=== PATIENT | male | born 1960 | race Caucasian/White ===

== ENCOUNTER 2020-07-11 09:24 | Outpatient (REF) | payer OTHER, SELFPAY ==
[2020-07-11 13:54] LABS: Basophils Percent Auto 0.6 % (0-2); Eosinophils Absolute Auto 0.1 X10*3/uL (0.0-0.4); Eosinophils Percent Auto 2.1 % (0-4); Hematocrit 41.4 % (42-52); Hemoglobin 14.2 g/dl (14.0-18.0); Imm Gran Abs Auto 0.01 X10*3/uL (0.00-0.03); Imm Gran Pct Auto 0.2 % (0.0-0.4); Lymphocytes Absolute Auto 0.6 X10*3/uL (1.2-4.9); Lymphocytes Percent Auto 11.9 % (20-40); MANUAL DIFF FLAG SCAN; Mean Corpuscular HGB Conc 34.3 g/dl (31.0-36.0); Mean Corpuscular Hemoglobin 32.3 pg (27.0-33.0); Mean Corpuscular Volume 94.3 fL (80-98); Mean Platelet Volume 10.4 fL (9.4-12.4); Monocytes Absolute Auto 0.6 X10*3/uL (0.1-1.2); Monocytes Percent Auto 11.9 % (2-11); Neutrophils Absolute Auto 3.5 X10*3/uL (2.0-8.3); Neutrophils Percent Auto 73.3 % (45-73); Platelet Count 201 X10*3/uL (160-400); Red Blood Count 4.39 X10*6/uL (4.60-5.80); Red Cell Distribution Width 11.8 % (11.0-16.0); SCAN SMEAR FLAG 1; White Blood Count 4.7 X10*3/uL (4.8-10.8)
[2020-07-11 14:26] LABS: SLIDE REVIEW VERIFIED
[2020-07-11 14:40] LABS: Alanine Aminotransferase 16 U/L (0-40); Albumin Level 4.3 g/dL (3.5-5.0); Alkaline Phosphatase 75 U/L (39-117); Anion Gap 12 (12-20); Aspartate Amino Transferase 19 U/L (5-37); Bilirubin Total 0.7 mg/dL (0.0-1.0); Blood Urea Nitrogen 25 mg/dL (9-16); Calcium 9.4 mg/dL (8.4-10.2); Carbon Dioxide 27 mmol/L (22-29); Chloride 103 mmol/L (96-108); Cholesterol 187 mg/dL; Estimated Glomerular Filt Rate > 60; Glucose Random 100 mg/dL (60-115); Potassium 4.7 mmol/l (3.3-5.1); Sodium 137 mmol/L (135-145); Total Protein 6.8 g/dL (6.5-8.0)
[2020-07-11 14:50] LABS: Free T4 (Free Thyroxine) 1.03 ng/dL (0.71-1.85); Prostate Specific Antigen Scr 0.51 ng/mL (<0.05-4.0); Thyroid Stimulating Hormone 1.95 mIU/mL (0.32-4.0)
== END 2020-07-11 09:25 | disposition home or self-care (01) ==
LOC: HO.10HDL 09:24
PROVIDERS: Visit Provider Internal Medicine
DX: Z12.5 Encounter for screening for malignant neoplasm of prostate (principal); N40.0 Benign prostatic hyperplasia without lower urinary tract symptoms; R63.4 Abnormal weight loss; Z98.890 Other specified postprocedural states
CPT/HCPCS: 36415; 80053; 82465; 84153; 84439; 84443; 85025

== ENCOUNTER → 2020-07-12 08:18 | Outpatient (REF) | payer OTHER, SELFPAY ==
--- NOTE | 2020-07-12 08:30 | CA_ITS ---
Transthoracic Echocardiogram Patient (Last, First, Middle): Adrian Mitchell M Gender: Male Date of : 1960 Age: 60 Procedure Date: 07/12/2020 Procedure Type: Transthoracic Echocardiogram Location: OP Height: 187.96 cm Weight: 81.65 kg BSA: 2.08 m2 Heart Rate: bpm BP: 140 / 100 mmHg Employee Health Nurse: CR Referring MD: José Oneil MD Symptoms: R00.2 Palpitations Study Quality: Good ECG Rhythm: Sinus Conclusions: - The left ventricular systolic function is normal. The visually estimated ejection fraction is between 55-60%. - There is mild mitral valve regurgitation. Findings Left Ventricle Normal left ventricular cavity size. There is mildly increased left ventricular wall thickness. The left ventricular systolic function is normal. The visually estimated ejection fraction is between 55-60%. There is no evidence of regional wall motion abnormalities. E/E prime ratio is <8, consistent with normal filling pressures. Evidence suggests grade I (mild) diastolic dysfunction. Right Ventricle Normal right ventricular cavity size and systolic function. Atria The left atrium is normal in size. The right atrium is normal in size. Aortic Valve There is a normal trileaflet aortic valve. There is no aortic valve stenosis. There is no aortic valve regurgitation. Mitral Valve The mitral valve appears normal. There is mild mitral valve regurgitation. There is no mitral valve stenosis. Pulmonic Valve The pulmonic valve was not well visualized. Tricuspid Valve Normal tricuspid valve structure. There is mild tricuspid valve regurgitation. The pulmonary artery systolic pressure is normal. Great Vessels The aortic annulus, sinuses of valsalva, and asc aorta are normal in size. Venous The inferior vena cava is normal in size and collapses greater than 50% with inspiration. Pericardium/Pleural There is no evidence of pericardial effusion. Prior Study Comparison No prior study available for comparison. Measurements M-Mode Liner Measurements Normals - Women/Men IVSd: 1.22 0.6-0.9/0.6-1.0 cm LVIDd: 5.74 3.9-5.3/4.2-5.9 cm LVIDd Index: 2.76 1.9-3.2 cm/m2 LVIDs: 4.30 2.0-3.8 cm LVPWd: 1.30 0.6-0.9/0.6-1.0 cm LV Mass: 389.42 67-162/88-224g LV Mass Index: 187.22 43-95/49-115 g/m2 M-Mode Volumes LV EDV: 163.00 LV ESV: 83.10 2D Linear Measurements IVSd: 1.14 0.6-0.9/0.6-1.0 cm LVIDd: 4.89 3.9-5.3/4.2-5.9 cm LVIDd Index: 2.35 2.4-3.2/2.2-3.1 cm/m2 LVIDs: 3.50 2.0-3.6 cm LVPWd: 1.33 0.7-1.1 cm Ao Root: 3.20 2.1-3.5 cm LA Diam: 3.70 2.7-3.8/3.0-4.0 cm LAIDs Index: 1.78 1.5-2.3 cm/m2 LV Mass: 293.03 67-162/88-224 g LV Mass Index: 140.88 43-95/49-115 g/m2 LVOT Diam: 2.50 3.0+(-)1.3 cm 2D Systolic Function EF 4C: 48.70 >55% EF 2C: 42.80 >55% M-Mode Systolic Function FS: 25.10 27-47/25-43% Mitral Valve MV Pk E: 0.50 MV PK A: 0.76 MV Decel Time: 114.00 E/A: 0.70 E'Lateral: 8.12 E'Medial: 5.51 E/E' Med: 9.10 E/E' Lat: 6.20 PHT: 33.00 MVA PHT: 6.67 Decel [place]: 4.44 Aortic Valve AoV Pk Martir: 0.96 AoV Pk Grad: 4.00 LVOT LVOT Pk Martir: 0.95 LVOT Mn Martir: 0.60 LVOT VTI: 0.19 LVOT Pk Grad: 4.00 LVOT Mn Grad: 2.00 LVOT Diam: 2.50 LVOT Area: 4.91 Diastolic Function MV Pk E: 0.50 MV Pk A: 0.76 E/A: 0.70 E'Medial: 5.51 E/E' Med: 9.10 E' Laterial: 8.12 E/E' Lat: 6.20 Tricuspid Valve TR Pk Martir: 2.32 TR Pk Grad: 22.00 RA Press: 3.00 RVSP: 25.00 Great Vessels Aorta Ao Root-2D: 3.20 2.0-3.7 cm Ao Asc: 3.40 2.1-3.4 cm Updated in Other Vendor System with Status of Final August Machado MD electronically signed on 07/12/2020 4:21:43 PM with status of Final
== END ==
LOC: HO.CARD 08:18
PROVIDERS: PCP Internal Medicine; Visit Provider Internal Medicine
DX: R00.2 Palpitations (principal)
CPT/HCPCS: 93306

== ENCOUNTER → 2020-08-17 09:31 | Outpatient (REF) | payer OTHER, SELFPAY ==
--- NOTE | 2020-08-17 10:00 | ECG_ITS ---
Hook-up date: 2020-08-17 09:44:00 Duration: 47:59:00 Test Indications: PALPITATIONS Medications: 890052 QRS complexes 3731 Ventricular ectopics which represent 3 % of total QRS comp. 238 Supraventricular ectopics which represent <1 % of total QRS comp. * Paced QRS complexs which represent % of total QRS comp. VENTRICULAR ECTOPY 3072 Isolated 108 Bigeminal Cycles 260 Couplets 40 Runs 139 Beats in Runs 8 Beats LONGEST at 79 BPM at 10:46:11 2020-08-17 3 Beats FASTEST at 156 BPM at 11:47:29 2020-08-17 SUPRAVENTRICULAR ECTOPY 216 Isolated 11 Couplets 0 Runs 0 Beats in Runs * Beats LONGEST at * BPM at :: -- * Beats FASTEST at * BPM at :: -- HEART RATES 47 MIN at 04:50:49 2020-08-18 76 AVG 113 MAX at 09:26:10 2020-08-18 LONGEST RR 0.7200 secs at 05:18:05 2020-08-18 S-T LEVELS Channel 1 - 128 mm at 09:44:00 2020-08-17 - 128 mm at 09:44:00 2020-08-17 Channel 2 - 128 mm at 09:44:00 2020-08-17 - 128 mm at 09:44:00 2020-08-17 Channel 3 - 128 mm at 02:90:31 -- - 128 mm at 02:90:31 HOLTER MONITOR COMPLETED TO EVAL PALP.NO DIARY ENTRIES OF SYMPTOMS.48 HR TEST COMPLETED. MAX HR 113; MIN HR 47. OCC PAC'S NOTED. FREQUENT PVC'S WITH OCC BIGEMINY, SOME COUPLETS, SEVERAL CONSECUTIVE RUNS OF 3-5 BEATS. PT WILL BE REFERRED FOR CARDIOLOGY EVAL. Referred By: José August Overread By: BLANCA AUGUST MD
== END ==
LOC: HO.CARD 09:31
PROVIDERS: PCP Internal Medicine; Visit Provider Internal Medicine
DX: R00.2 Palpitations (principal)
CPT/HCPCS: 93225; 93226

== ENCOUNTER → 2020-09-18 10:42 | Outpatient (BNVA) | payer OTHER, SELFPAY | PROVIDERS: PCP Internal Medicine; Visit Provider Internal Medicine | DX: R00.2 Palpitations (principal); I49.3 Ventricular premature depolarization; I34.0 Nonrheumatic mitral (valve) insufficiency | CPT/HCPCS: 93005 ==

== ENCOUNTER → 2020-09-25 10:39 | Outpatient (REF) | payer OTHER, SELFPAY ==
--- NOTE | 2020-09-25 10:42 | CA_ITS ---
Acquisition Time: 2020-09-25 10:57:18 Total Exercise Time: 00:05:26 Test Indications: Abnormal ECG Medications: KEYTRUDA Protocol: KACEY Max HR: 179 BPM 111% of Pred: 161 BPM Max BP: 202/090 mmHG Max Work Load: 7.0 METS Exersice stress ECHO using Kacey protocol. Test ended at 5 min 26 sec, as pt's went into VT and became SOB. METS 7.0. ECHO images taken at rest and at peak exercise. Very difficult to see changes to ST segments as pt having multiple SVT's as well as going to VT at peak exercise. Hypertensive response to BP normalyzed in 10 minutes into recovery, last BP taken was 138/78 Rhythm returned to baseline at 100/min with more frequent PVC's Pt will be seen by Dr. Machado at 12:30 Referred By: August Machado Overread By: Hill Lanza
== END ==
LOC: HO.CARD 10:39
PROVIDERS: Visit Provider Internal Medicine
DX: R00.2 Palpitations (principal)
CPT/HCPCS: 93350; Q9957

== ENCOUNTER → 2020-12-03 08:44 | Outpatient (REF) | payer OTHER, SELFPAY ==
--- NOTE | 2020-12-03 11:05 | ECG_ITS ---
Hook-up date: 2020-12-03 10:16:00 Duration: 26:49:00 Test Indications: VENTRICULAR DEPOLARIZATION Medications: 15467 QRS complexes 5085 Ventricular ectopics which represent 5 % of total QRS comp. 29 Supraventricular ectopics which represent <1 % of total QRS comp. * Paced QRS complexs which represent % of total QRS comp. VENTRICULAR ECTOPY 4599 Isolated 230 Bigeminal Cycles 218 Couplets 16 Runs 50 Beats in Runs 4 Beats LONGEST at 199 BPM at 16:35:35 2020-12-03 4 Beats FASTEST at 199 BPM at 16:35:35 2020-12-03 SUPRAVENTRICULAR ECTOPY 29 Isolated 0 Couplets 0 Runs 0 Beats in Runs * Beats LONGEST at * BPM at :: -- * Beats FASTEST at * BPM at :: -- HEART RATES 55 MIN at 04:00:05 2020-12-04 81 AVG 126 MAX at 10:46:15 2020-12-03 LONGEST RR 1.6800 secs at 19:58:50 2020-12-03 S-T LEVELS Channel 1 - 128 mm at 10:16:00 2020-12-03 - 128 mm at 10:16:00 2020-12-03 Channel 2 - 128 mm at 10:16:00 2020-12-03 - 128 mm at 10:16:00 2020-12-03 Channel 3 - 128 mm at 02:93:51 -- - 128 mm at 02:93:51 Underlying rhythm is sinus; Average ventricular rate 81/min; range 55-126/min; Frequent PVCs; variable morphology; mostly isolated; some couplets; bigeminy; about 16 runs noted; longest 4 beats at 199/min; No sustained arrhythmias; No events in patient diary. Referred By: Horacio Bravo Overread By: HORACIO BRAVO
== END ==
LOC: HO.CARD 08:44
PROVIDERS: PCP Internal Medicine; Visit Provider Internal Medicine
DX: I49.3 Ventricular premature depolarization (principal)
CPT/HCPCS: 93226

== ENCOUNTER → 2021-01-03 14:51 | Outpatient (BNVA) | payer OTHER, SELFPAY | PROVIDERS: PCP Internal Medicine; Visit Provider Internal Medicine ==

== ENCOUNTER 2022-05-16 18:42 | Emergency (ER) | payer OTHER, SELFPAY ==
--- NOTE | 2022-05-16 | ECG_ITS ---
Test Reason : DIFFICULTY BREATHING Blood Pressure : / mmHG Vent. Rate : 116 BPM Atrial Rate : 116 BPM P-R Int : 134 ms QRS Dur : 096 ms QT Int : 342 ms P-R-T Axes : 062 044 083 degrees QTc Int : 475 ms Sinus tachycardia with occasional Premature ventricular complexes RSR' or QR pattern in V1 suggests right ventricular conduction delay Nonspecific ST and T wave abnormality Abnormal ECG No previous ECGs available Referred By: Generic ED Physician Electronically Signed By:ANIL JEROME
--- NOTE | ~2022-05-16 | CT_ITS ---
EXAMINATION: CT CHEST WITHOUT CONTRAST CLINICAL INFORMATION: Dyspnea COMPARISON: 05/16/2022 TECHNIQUE: Multidetector volumetric CT imaging of the chest was done. Axial MIP volume rendering provided. Sagittal and coronal reformatted images were obtained. This CT examination was performed using dose optimization techniques as appropriate, variously including the following: *Automated exposure control *Adjustment of mA and/or kV according to patient size (this includes techniques or standardized protocols for targeted exams where dose is matched to indication/reason for exam; i.e. extremities or head) *Use of iterative reconstruction technique DLP: 226 mGy-cm FINDINGS: RETAIL ASSISTANT STORE MANAGER: Bilateral lung opacities noted. LUNGS: The central airways are patent. Multifocal nodular and masslike areas of consolidation are seen throughout both lungs. For instance, there is a right upper lobe perihilar mass measuring 3.5 cm. Posterior right lower lobe 4.2 cm mass at the mid lung. Superior segment left lower lobe 2.7 cm nodule noted. More inferiorly the areas of consolidation are more confluent, particularly in the right lower lobe. No pneumothorax MEDIASTINUM: Evaluation is limited without IV contrast. Prominent heart. No pericardial effusion. Right paratracheal lymph node measures 1 cm short axis, series 4 image 20. There is soft tissue nodularity in the right epicardial fat measuring 3.3 x 1.6 cm on series 4 image 48. A nodule is seen along the distal aspect of the esophagus measuring 1.1 cm on series 4 image 47. PLEURA: No pleural effusion. AXILLA: No lymphadenopathy. A right chest wall port is in place. UPPER ABDOMEN: Bilateral ill-defined adrenal gland thickening/nodularity. OSSEOUS STRUCTURES: Mild anterior wedging at the T11 vertebral body. No focal osseous lesion identified. Mild degenerative changes in the spine. CT/CT chest wo con IMPRESSION: Multifocal nodular and masslike areas of consolidation in both lungs. This appearance is nonspecific, but metastatic disease is the primary concern. The presence of the right chest wall port raises suspicion of known cancer. Alternatively, atypical infection is a consideration. Prominent mediastinal lymph nodes, concerning for metastatic disease. Abnormal adrenal gland thickening, also worrisome for metastatic disease. Fleischner guidelines were followed.
--- NOTE | ~2022-05-16 | XR_ITS ---
EXAMINATION: XR CHEST CLINICAL INFORMATION: Dyspnea. COMPARISON: None TECHNIQUE: Frontal view of the chest was obtained. FINDINGS: Opacities are seen in the right mid lung perihilar region and lung bases. The heart and mediastinal structures are unremarkable. A right-sided central venous port. The tip terminating in the right atrium. The heart and mediastinal structures are unremarkable. XR/XR chest 1V IMPRESSION: Bilateral patchy infiltrates most pronounced in the right perihilar region are nonspecific. This could represent an infectious/inflammatory process however, pulmonary nodule/malignancy cannot be excluded. Short-term radiographic follow-up after treatment is recommended to assess for resolution. If these findings do not resolve, a chest CT scan is recommended.
[2022-05-16 18:57] VITALS: BP 149/94; PULSE 119; RESP 20; TEMP 37.5; O2SAT 96; BMI 19.6
[2022-05-16 19:02] VITALS: BP 120/65; PULSE 114; O2SAT 98
--- NOTE | 2022-05-16 19:15 | ED_ITS ---
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 He is frail and cachectic. He has been having issues clearing mucous and having coughing fits x 6 months. Tonight he thinks he mucous plugged and EMS found him 83% on RA - responded to neb treatment and s iraida he wishes he had one at home. MD elicited complaint: shortness of breath and cough Pertinent past history: other (difficulty clearing secretoins post radiation) Onset (ago): month(s) (6) Context: choking/aspiration Timing: intermittent Severity: severe Exacerbating factors: coughing Relieving factors: bronchodilators (had great relief with neb) Known history of: PE, DVT and other (lung cancer) Associated symptoms: cough, sputum production and other (chronic stridor) Treatment prior to arrival: oxygen and bronchodilator Related Data Home Medications Medication Instructions Recorded Confirmed carboplatin 10 mg/mL intravenous continuous IV infusion 01/03/21 01/03/21 solution cetuximab 100 mg/50 mL intravenous IV 01/03/21 01/03/21 solution (Erbitux) paclitaxel 6 mg/mL IV 01/03/21 01/03/21 concentrate,intravenous Allergies Allergy/AdvReac Type Severity Reaction Status Date / Time No Known Drug Allergies Allergy Unknown NONE Verified 01/03/21 15:10 [NO KNOWN DRUG ALLERGIES] Review of Systems Review of Systems: Constitutional : No Fever, No Chills ENT/Mouth : No sore throat, No Rhinorrhea, No Swallowing Difficulty Eyes: No Eye Pain, No Swelling, No Redness Cardiovascular : No Chest Pain, positive SOB, No Orthopnea, no Edema Respiratory : pos Cough, pos Sputum, No Wheezing, positive dyspnea Gastrointestinal : No Nausea, No Vomiting, No Diarrhea, No abdominal Pain, No Hematochezia, No Melena Genitourinary : No Dysuria, No Urinary Frequency, No Hematuria Musculoskeletal : No joint pain, No Myalgias Skin : No Skin Lesions, No rash Neuro : No Weakness, No Numbness, No Dizziness, No Headache Psych : No Anxiety/Panic, No Depression Heme/Lymph: No Bruising, No Lymphadenopathy Endocrine : No Polyuria, No Polydipsia All other systems reviewed and are negative [facility] Past Medical History Attestation statement: The following information was validated with the patient. Medical History Primary squamous cell carcinoma of throat Surgical History History of ankle surgery History of biopsy History of inguinal hernia repair History of lung biopsy Family History Family History Father No problems noted. Mother No problems noted. Social History Social History (Updated 05/16/22 @ 19:32 by Alyson Wheat DO) Patient Tobacco Use Status: Never used Tobacco Advance Directives: No Advance Directives Information Provided: No Advance Directives Date on File: 07/11/20 Physical Exam Vital Signs: Vital Signs: Last Vital Signs Temp 99.5 F 05/16/22 18:57 Pulse 115 H 05/16/22 22:00 Resp 25 H 05/16/22 22:00 BP 133/82 05/16/22 22:00 Pulse Ox 94 05/16/22 22:00 O2 Del Method 05/16/22 22:00 O2 Flow Rate 4 05/16/22 22:00 Oxygen Flow Rate 4 05/16/22 18:57 BMI result Body Mass Index 19.6 Appearance: Alert. Oriented X3. No acute distress. Frail cachectic Eyes: Pupils equal, round and reactive to light. ENT: Pharynx normal. Neck: Normal inspection. Neck supple. CVS: Normal heart rate and rhythm. Pulses normal. Respiratory: No respiratory distress. Breath sounds slightly coarse Abdomen: Soft and nontender. Skin: Skin warm and dry. pale skin color. Normal skin turgor. Extremities: No lower extremity edema. No calf ttp Neuro: Oriented X 3. No motor deficit. No sensory deficit. 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 He now has lung cancer and mets - he had a choking spell from mucous at home and plugged that resolved with neb. At this time will repeat neb, obtain basic labs and imag ing. He denies infectious symptoms or chest pain already on DOAC doubt ACS/PE. He reports cough x 6 months. He is seeing a surgeon to discuss options to better help him clear his secretions vs permanent trach. Dispo per results and response to duoneb Lab Data Result diagrams: 05/16/22 20:24 05/16/22 20:24 Labs: Lab Results 05/16/22 05/16/22 05/16/22 Range/Units 20:24 20:24 20:24 WBC 12.6 H (4.8-10.8) X10*3/uL RBC 4.35 L (4.60-5.80) X10*6/uL Hgb 12.9 L (14.0-18.0) g/dl Hct 38.2 L (42.0-52.0) % MCV 87.8 (80.0-98.0) fL MCH 29.7 (27.0-33.0) pg MCHC 33.8 (31.0-36.0) g/dl RDW 14.3 (11.0-16.0) % Plt Count 295 (160-400) X10*3/uL MPV 9.4 (9.4-12.4) fL Immature Gran % (Auto) 0.2 (0.0-0.4) % Neut % (Auto) 95.2 H (45-73) % Lymph % (Auto) 2.3 L (20-40) % [place] % (Auto) 1.8 L (2-11) % Eos % (Auto) 0.2 (0-4) % Baso % (Auto) 0.3 (0-2) % Lymph # (Auto) 0.3 L (1.2-4.9) X10*3/uL [place] # (Auto) 0.2 (0.1-1.2) X10*3/uL Eos # (Auto) 0.0 (0.0-0.4) X10*3/uL Baso # (Auto) 0.0 (0.0-0.2) X10*3/uL Abs Immat Gran (auto) 0.03 (0.00-0.03) X10*3/uL Absolute Neuts (auto) 12.0 H (2.0-8.3) x10*3/uL Absolute Nucleated RBC 0.000 (0.0-0.012) X10*3/uL Nucleated RBC % (auto) 0.0 (0.0-0.2) /100WBC Smear Tech's Comments VERIFIED PT (10.0-13.1) SEC INR (0.9-1.1) Sodium 137 (135-145) mmol/L Potassium 4.1 (3.3-5.1) mmol/L Chloride 94 L (96-108) mmol/L Carbon Dioxide 29 (22-29) mmol/L Anion Gap 18 (12-20) BUN 28 H (9-16) mg/dL Creatinine 0.95 (0.5-1.4) mg/dL Estim Creat Clear Calc 75.9 Estimated GFR > 60 Random Glucose 176 H D (60-115) mg/dL Lactic Acid 2.7 H* (0.5-2.0) mmol/L Lactic Acid F/U @ 2Hr (0.5-2.0) mmol/L Calcium 9.3 (8.4-10.2) mg/dL Magnesium 1.7 (1.6-2.6) mg/dL Total Bilirubin 0.8 (0.0-1.0) mg/dL Direct Bilirubin 0.4 (0.0-0.5) mg/dL AST 26 (5-37) U/L ALT 11 (0-40) U/L Alkaline Phosphatase 111 D (39-117) U/L Troponin I High Sens (<3.5-35.0) ng/L B-Natriuretic Peptide (<100) pg/mL Total Protein 7.6 (6.5-8.0) g/dL Albumin 4.3 (3.5-5.0) g/dL COVID-19 (LATESHA) (Negative) COVID-19 Clin Com 05/16/22 05/16/22 05/16/22 Range/Units 20:24 20:24 20:24 WBC (4.8-10.8) X10*3/uL RBC (4.60-5.80) X10*6/uL Hgb (14.0-18.0) g/dl Hct (42.0-52.0) % MCV (80.0-98.0) fL MCH (27.0-33.0) pg MCHC (31.0-36.0) g/dl RDW (11.0-16.0) % Plt Count (160-400) X10*3/uL MPV (9.4-12.4) fL Immature Gran % (Auto) (0.0-0.4) % Neut % (Auto) (45-73) % Lymph % (Auto) (20-40) % [place] % (Auto) (2-11) % Eos % (Auto) (0-4) % Baso % (Auto) (0-2) % Lymph # (Auto) (1.2-4.9) X10*3/uL [place] # (Auto) (0.1-1.2) X10*3/uL Eos # (Auto) (0.0-0.4) X10*3/uL Baso # (Auto) (0.0-0.2) X10*3/uL Abs Immat Gran (auto) (0.00-0.03) X10*3/uL Absolute Neuts (auto) (2.0-8.3) x10*3/uL Absolute Nucleated RBC (0.0-0.012) X10*3/uL Nucleated RBC % (auto) (0.0-0.2) /100WBC Smear Tech's Comments PT 17.5 H (10.0-13.1) SEC INR 1.5 H (0.9-1.1) Sodium (135-145) mmol/L Potassium (3.3-5.1) mmol/L Chloride (96-108) mmol/L Carbon Dioxide (22-29) mmol/L Anion Gap (12-20) BUN (9-16) mg/dL Creatinine (0.5-1.4) mg/dL Estim Creat Clear Calc Estimated GFR Random Glucose (60-115) mg/dL Lactic Acid (0.5-2.0) mmol/L Lactic Acid F/U @ 2Hr (0.5-2.0) mmol/L Calcium (8.4-10.2) mg/dL Magnesium (1.6-2.6) mg/dL Total Bilirubin (0.0-1.0) mg/dL Direct Bilirubin (0.0-0.5) mg/dL AST (5-37) U/L ALT (0-40) U/L Alkaline Phosphatase (39-117) U/L Troponin I High Sens (<3.5-35.0) ng/L B-Natriuretic Peptide 16 (<100) pg/mL Total Protein (6.5-8.0) g/dL Albumin (3.5-5.0) g/dL COVID-19 (LATESHA) Negative (Negative) COVID-19 Clin Com See Note 05/16/22 05/16/22 Range/Units 20:24 22:56 WBC (4.8-10.8) X10*3/uL RBC (4.60-5.80) X10*6/uL Hgb (14.0-18.0) g/dl Hct (42.0-52.0) % MCV (80.0-98.0) fL MCH (27.0-33.0) pg MCHC (31.0-36.0) g/dl RDW (11.0-16.0) % Plt Count (160-400) X10*3/uL MPV (9.4-12.4) fL Immature Gran % (Auto) (0.0-0.4) % Neut % (Auto) (45-73) % Lymph % (Auto) (20-40) % [place] % (Auto) (2-11) % Eos % (Auto) (0-4) % Baso % (Auto) (0-2) % Lymph # (Auto) (1.2-4.9) X10*3/uL [place] # (Auto) (0.1-1.2) X10*3/uL Eos # (Auto) (0.0-0.4) X10*3/uL Baso # (Auto) (0.0-0.2) X10*3/uL Abs Immat Gran (auto) (0.00-0.03) X10*3/uL Absolute Neuts (auto) (2.0-8.3) x10*3/uL Absolute Nucleated RBC (0.0-0.012) X10*3/uL Nucleated RBC % (auto) (0.0-0.2) /100WBC Smear Tech's Comments PT (10.0-13.1) SEC INR (0.9-1.1) Sodium (135-145) mmol/L Potassium (3.3-5.1) mmol/L Chloride (96-108) mmol/L Carbon Dioxide (22-29) mmol/L Anion Gap (12-20) BUN (9-16) mg/dL Creatinine (0.5-1.4) mg/dL Estim Creat Clear Calc Estimated GFR Random Glucose (60-115) mg/dL Lactic Acid (0.5-2.0) mmol/L Lactic Acid F/U @ 2Hr 1.9 (0.5-2.0) mmol/L Calcium (8.4-10.2) mg/dL Magnesium (1.6-2.6) mg/dL Total Bilirubin (0.0-1.0) mg/dL Direct Bilirubin (0.0-0.5) mg/dL AST (5-37) U/L ALT (0-40) U/L Alkaline Phosphatase (39-117) U/L Troponin I High Sens 7.2 (<3.5-35.0) ng/L B-Natriuretic Peptide (<100) pg/mL Total Protein (6.5-8.0) g/dL Albumin (3.5-5.0) g/dL COVID-19 (LATESHA) (Negative) COVID-19 Clin Com ECG Data Attestation: I personally reviewed and interpreted this ECG as follows: ECG interpretation date: 05/16/22 ECG interpretation time: 19:31 Interpretation: Rate: 116 Rhythm: sinus tach with occ PVCs [place]: normal Normal P waves. Normal ELENA. Normal QRS complex. ST T wave : nonspecific no JEAN CARLOS qTC: normal prior studies: changed from 2019 The study has been interpreted contemporaneously by me. . Discharge Plan Discharge Clinical Impression: Chronic cough Patient Disposition: Home, Self-Care Instructions: Chronic Cough (ED) Additional Instructions: return to ED for any worsening symptoms or concerns YOU DRIED UP WELL WITH A DUONEB - YOU RESPONDED BETTER TO IPRATROPIUM WITH THE ALBUTEROL TALK TO DR. AUGUST ABOUT USING THIS AT HOME WITH NEB MACHINE CT/CT chest wo con IMPRESSION: Multifocal nodular and masslike areas of consolidation in both lungs. This appearance is nonspecific, but metastatic disease is the primary concern. The presence of the right chest wall port raises suspicion of known cancer. Alternatively, atypical infection is a consideration. ? Prominent mediastinal lymph nodes, concerning for metastatic disease. ? Abnormal adrenal gland thickening, also worrisome for metastatic disease. ? Fleischner guidelines were followed. Prescriptions: No Action carboplatin 10 mg/mL solution continuous IV infusion Erbitux 100 mg/50 mL solution IV paclitaxel 6 mg/mL concentrate IV Referrals: José August MD [Primary Care Provider] - 05/19/22 (you would benefit from a neb machine with duo nebs) Interventions: ED Discharge Assessment Last Done: 05/17/22 00:10 Discharge Date/Time: 05/17/22 00:11
[2022-05-16 19:48] VITALS: PULSE 116; RESP 14; O2SAT 95
[2022-05-16] MEDS: Albuterol/Iprat 2.5/0.5MG 3 ML AMPUL.NEB INHALE (19:48)
[2022-05-16 19:59] VITALS: BP 149/84; PULSE 113; RESP 19; O2SAT 97
--- NOTE | 2022-05-16 20:15 | PC.NURSE ---
pt a&ox3, vss, o2 @ 97% on 4L, pt denies any pain at this time, reports that he is feeling much better. pt wanted to let us know that he took his bedtime dose of thc prior to coming to the ED in case he starts getting tired.
[2022-05-16 20:34] LABS: Basophils Percent Auto 0.3 % (0-2); Eosinophils Percent Auto 0.2 % (0-4); Hematocrit 38.2 % (42.0-52.0); Hemoglobin 12.9 g/dl (14.0-18.0); Imm Gran Abs Auto 0.03 X10*3/uL (0.00-0.03); Imm Gran Pct Auto 0.2 % (0.0-0.4); Lymphocytes Absolute Auto 0.3 X10*3/uL (1.2-4.9); Lymphocytes Percent Auto 2.3 % (20-40); MANUAL DIFF FLAG SCAN; Mean Corpuscular HGB Conc 33.8 g/dl (31.0-36.0); Mean Corpuscular Hemoglobin 29.7 pg (27.0-33.0); Mean Corpuscular Volume 87.8 fL (80.0-98.0); Mean Platelet Volume 9.4 fL (9.4-12.4); Monocytes Absolute Auto 0.2 X10*3/uL (0.1-1.2); Monocytes Percent Auto 1.8 % (2-11); Neutrophils Percent Auto 95.2 % (45-73); Platelet Count 295 X10*3/uL (160-400); Red Blood Count 4.35 X10*6/uL (4.60-5.80); Red Cell Distribution Width 14.3 % (11.0-16.0); SCAN SMEAR FLAG 1; White Blood Count 12.6 X10*3/uL (4.8-10.8)
[2022-05-16 20:38] LABS: INTERNATIONAL NORM RATIO 1.5 (0.9-1.1); Prothrombin Time 17.5 SEC (10.0-13.1)
[2022-05-16 20:50] LABS: COVID-19 Test Negative (Negative)
[2022-05-16 20:52] LABS: Lactic Acid 2.7 mmol/L (0.5-2.0)
[2022-05-16 20:53] LABS: Alanine Aminotransferase 11 U/L (0-40); Albumin Level 4.3 g/dL (3.5-5.0); Alkaline Phosphatase 111 U/L (39-117); Anion Gap 18 (12-20); Aspartate Amino Transferase 26 U/L (5-37); Bilirubin Direct 0.4 mg/dL (0.0-0.5); Bilirubin Total 0.8 mg/dL (0.0-1.0); Blood Urea Nitrogen 28 mg/dL (9-16); Calcium 9.3 mg/dL (8.4-10.2); Carbon Dioxide 29 mmol/L (22-29); Chloride 94 mmol/L (96-108); Creatinine Clr Calc Pharmacy 75.9; Estimated Glomerular Filt Rate > 60; Glucose Random 176 mg/dL (60-115); Magnesium 1.7 mg/dL (1.6-2.6); Potassium 4.1 mmol/L (3.3-5.1); SLIDE REVIEW VERIFIED; Sodium 137 mmol/L (135-145); Total Protein 7.6 g/dL (6.5-8.0)
[2022-05-16 20:59] LABS: B Type Natriuretic Peptide 16 pg/mL (<100); Troponin-I High Sensitivity 7.2 ng/L (<3.5-35.0)
[2022-05-16] MEDS: Lactated Ringers 1,000 ML 999 ML IV (21:58)
[2022-05-16 22:00] VITALS: BP 133/82; PULSE 115; RESP 25; O2SAT 94
--- NOTE | 2022-05-16 22:09 | PC.NURSE ---
pt ambulated w 1 assist to bathroom, unsteady gait, on arrival back at room pt o2 sat 86%, improved w O2 @ 4L via nasal cannula. 20G IV placed left forearm, LR started.
[2022-05-16 22:29] LABS: Reflex Lactate? Lactic Acid Added
[2022-05-16 23:12] LABS: ~Lactic Acid-LAB USE ONLY 1.9 mmol/L (0.5-2.0)
== END 2022-05-17 00:11 | disposition home or self-care (01) ==
PROVIDERS: Emergency Provider Emergency Medicine; PCP Internal Medicine
DX: R05.9 Cough, unspecified (principal); R06.02 Shortness of breath; M54.6 Pain in thoracic spine; M54.2 Cervicalgia; Z20.822 Contact with and (suspected) exposure to COVID-19; Z79.899 Other long term (current) drug therapy
CPT/HCPCS: 36415; 71045; 71250; 80048; 80076; 83605; 83735; 83880; 84484; 85025; 85610; 87040; 87635; 93005; 94640; 96360; 96361; 99284; 99285

== ENCOUNTER 2022-06-04 22:27 | Inpatient (IN) | payer OTHER, SELFPAY ==
--- NOTE | ~2022-06-04 | CT_ITS ---
EXAMINATION: CT ANGIOGRAM OF THE CHEST WITH AND WITHOUT CONTRAST (CT PULMONARY ANGIOGRAM FOR PE) CLINICAL INFORMATION: Reason for Exam syncope COMPARISON: CT chest 05/16/2022 TECHNIQUE: Prior to contrast administration, noncontrast localization images were obtained. Subsequently, multidetector volumetric imaging was performed from the thoracic inlet to below the diaphragms following the administration of 65 mL Omnipaque 350 intravenous contrast. No contrast reaction reported Sagittal, coronal, and MIP oblique sagittal reformatted images were obtained on the CT workstation, uploaded to PACS, and reviewed. This CT examination was performed using dose optimization techniques as appropriate, variously including the following: *Automated exposure control *Adjustment of mA and/or kV according to patient size (this includes techniques or standardized protocols for targeted exams where dose is matched to indication/reason for exam; i.e. extremities or head) *Use of iterative reconstruction technique Total exam dose-length product 273 mGy-cm FINDINGS: QUALITY OF STUDY/CONTRAST BOLUS: Satisfactory. PULMONARY ARTERIES: No central or segmental pulmonary emboli. THORACIC AORTA: No aneurysm or dissection. LUNG: The lungs are expanded with multifocal nodular and masslike areas of consolidation. The nodules have increased in size. For example the right upper lobe nodule peripherally based measures 2.8 x 2.9 seen on axial image 25/5 previously same nodule measured 1.9 x 1.9 cm. Left upper lobe nodule measures 2.1 x 1.7 cm axial image 21/5 previously it measured 1.9 x 1.4 cm. The larger nodules have definitely increased in size bilaterally. There are bilateral lower lobe, right middle lobe and lingular reticular nodular changes consistent with interstitial disease. PLEURA: There are small bilateral pleural effusions. MEDIASTINUM: Heart size is normal caliber. There is no pericardial effusion. There is bilateral hilar or mediastinal matted lymphadenopathy. Central trachea and the bronchi are widely patent. No evidence of septal bowing or right heart strain. CHEST WALL/AXILLA: No axillary or internal mammary lymphadenopathy. OSSEOUS STRUCTURES: No acute or suspicious osseous abnormality. UPPER ABDOMEN: Visualized liver, pancreas and right adrenal gland appears unremarkable. The left adrenal gland is slightly enlarged. The spleen is heterogeneous but not enlarged. No reflux of contrast into the hepatic veins to suggest elevated right heart pressures. CT/CT angio chest PE protocol IMPRESSION: No evidence of PE. No evidence aortic dissection or aneurysm. Multifocal pulmonary nodules of various sizes slightly increased since previous exam 05/16/2022. More interstitial reticular nodular changes are seen in both lower lobes, right middle lobe and lingula likely lymphatic involvement. There is bilateral small pleural effusions. Abnormal mediastinal matted lymphadenopathy. Heterogeneous liver could be secondary to differential enhancement pattern of the spleen. VTE: negative
--- NOTE | ~2022-06-04 | XR_ITS ---
EXAMINATION: XR CHEST CLINICAL INFORMATION: Syncope COMPARISON: Chest radiograph and CT chest 05/16/2022 TECHNIQUE: Frontal view of the chest was obtained. FINDINGS: Heart size normal. Again seen are multifocal masses throughout the lungs which appear possibly minimally smaller when compared to the prior study. For example, a right mid lung mass measured about 4.7 cm in cephalocaudad dimension now measuring 3.5 cm. A mass at the left lung base measured about 2.4 cm in maximum cephalocaudad dimension now appears a bit less well defined measuring about 1.8 cm.. Right chest wall port remains in place with its tip in the proximal right atrium. XR/XR chest 1V IMPRESSION: Lung opacities appear minimally improved when compared to prior.
--- NOTE | ~2022-06-04 | CT_ITS ---
EXAMINATION: CT head/brain wo IV con CLINICAL INFORMATION: Reason for Exam syncope COMPARISON: None. TECHNIQUE: Contiguous axial imaging was performed from the skull base to vertex without intravenous contrast. Sagittal and coronal reformatted images were obtained. This CT examination was performed using dose optimization techniques as appropriate, variously including the following: * Automated exposure control * Adjustment of mA and/or kV according to patient size (this includes techniques or standardized protocols for targeted exams where dose is matched to indication/reason for exam; i.e. extremities or head) Use of iterative reconstruction technique DLP: 696 mGy-cm FINDINGS: No acute osseous or soft tissue abnormality. The mastoid air cells and visualized portions of the paranasal sinuses are well aerated. There is no evidence of acute intracranial hemorrhage or territorial infarction. No abnormal mass effect or midline shift is seen. Mccormack to white matter differentiation is well preserved. No extra-axial fluid collections are identified. No hydrocephalus. No significant volume loss. There is no abnormal attenuation within the brain parenchyma. CT/CT head/brain wo IV con IMPRESSION: No acute intracranial abnormality including hemorrhage, mass effect, hydrocephalus, or acute territorial edematous infarction.
--- NOTE | 2022-06-04 22:35 | ECG_ITS ---
Test Reason : SYNCOPE Blood Pressure : / mmHG Vent. Rate : 119 BPM Atrial Rate : 119 BPM P-R Int : 130 ms QRS Dur : 092 ms QT Int : 298 ms P-R-T Axes : 069 058 079 degrees QTc Int : 419 ms Sinus tachycardia with occasional Premature ventricular complexes Possible Left atrial enlargement Incomplete right bundle branch block Nonspecific ST and T wave abnormality Abnormal ECG When compared with ECG of 16-MAY-2022 18:55, No significant change was found Referred By: Nilda Way Electronically Signed By:ANIL JEROME
[2022-06-04 22:40] VITALS: BP 123/60; BP 88/51; PULSE 120; PULSE 134; RESP 18; TEMP 37; O2SAT 93; BMI 18.5
[2022-06-04 22:53] VITALS: BP 113/64; PULSE 125
[2022-06-04 22:55] VITALS: BP 109/58; BP 113/64; PULSE 125; PULSE 128
[2022-06-04 22:56] VITALS: PULSE 139
[2022-06-04] MEDS: 0.9 % Sodium Chloride 1,000 ML 999 ML IV (23:03)
--- NOTE | 2022-06-04 23:03 | ED.GENADULT ---
HPI - General Adult General Chief complaint: Syncope Stated complaint: Fall/Syncopal Eposiode Time Seen by Provider: 06/04/22 22:34 Source: patient, EMS and old records reviewed Mode of arrival: EMS Limitations: no limitations History of Present Illness HPI narrative: 62-year-old male came in for evaluation after syncopal episode followed by a fall with unknown head injury. 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 via mouth and sometimes take a choking episode with food, patient feels weak and dehydration due to decreased p.o. intake, patient was in bed when he walked to the bathroom had a syncopal episode fell down patient do not remember hitting his head. Patient normally take Coumadin for anticoagulation therapy for DVT (been held for 3 days patient scheduled to have a liver biopsy at [facility]). Related Data Home Medications Medication Instructions Recorded Confirmed carboplatin 10 mg/mL intravenous continuous IV infusion 01/03/21 01/03/21 solution cetuximab 100 mg/50 mL intravenous IV 01/03/21 01/03/21 solution (Erbitux) paclitaxel 6 mg/mL IV 01/03/21 01/03/21 concentrate,intravenous Allergies Allergy/AdvReac Type Severity Reaction Status Date / Time No Known Drug Allergies Allergy Unknown NONE Verified 01/03/21 15:10 [NO KNOWN DRUG ALLERGIES] Review of Systems Review of Systems: All other systems are reviewed and are negative Constitutional: Reports as per HPI and Reports no additional constitutional complaints Eyes: Reports as per HPI and Reports no additional eye complaints Reports system reviewed and no additional complaints, except as documented Cardiovascular: Reports as per HPI and Reports no additional cardiovascular complaints Respiratory: Reports as per HPI and Reports no additional respiratory complaints Gastrointestinal: Reports as per HPI and Reports no additional gastrointestinal complaints Genitourinary: Reports no additional female genitourinary complaints Musculoskeletal: Reports no additional musculoskeletal complaints Skin/Breast: Reports system reviewed and no additional complaints, except as docu Psychiatric: Reports no additional psychiatric complaints Endocrine: Reports no additional endocrine complaints Hematologic/Lymphatic: Reports no additional hematologic/lymphatic complaints Allergic/Immunologic: Reports no additional allergic/immunologic complaints Reports system reviewed and no additional complaints, except as documented and Reports Abnormal speech present PMFSH Past Medical History Medical History Primary squamous cell carcinoma of throat Surgical History History of ankle surgery History of biopsy History of inguinal hernia repair History of lung biopsy Family History Family History Father No problems noted. Mother No problems noted. Social History Social History Alcohol intake: never Patient Tobacco Use Status: Never used Tobacco Use of substances other than those prescribed or required for medical reasons: No Advance Directives: Yes Advance Directives Information Provided: Yes Advance Directives on File: No Advance Directives Date on File: 07/11/20 Physical Exam ED Vital Signs: Vital Signs - 24 hr 06/04/22 22:40 06/04/22 22:53 06/04/22 22:55 Temperature 98.6 F Pulse Rate 120 H 125 H 128 H Respiratory Rate 18 Blood Pressure 123/60 113/64 109/58 L Pulse Oximetry 93 Oxygen Delivery Method Nasal Cannula Oxygen Flow Rate 06/04/22 22:55 06/04/22 22:56 06/05/22 00:00 Temperature Pulse Rate 125 H 139 H Respiratory Rate Blood Pressure 113/64 Pulse Oximetry 96 Oxygen Delivery Method Nasal Cannula Oxygen Flow Rate 06/05/22 00:00 Temperature 101.8 F H Pulse Rate 108 H Respiratory Rate 16 Blood Pressure 105/58 L Pulse Oximetry 95 Oxygen Delivery Method Nasal Cannula Oxygen Flow Rate 6 BMI result Body Mass Index 18.5 Vital signs have been reviewed as appeared to be correct. Blood pressure normal. Heart rate elevated. Respiration rate normal. Temperature normal. Oxygen saturation normal. Appearance: Alert. Oriented X3. No acute distress. Cachectic, dehydrated Head: Normal external exam. Normocephalic. Atraumatic. No Al signs noted. No raccoon eyes noted Eyes: PERRLA. EOMI. Conjunctiva and sclera normal. Eyelids normal. ENT: TM's Normal. Pharynx normal. Uvula midline. Dry mucous membranes. No trismus noted. No drooling noted. No muffled voice noted. Neck: Normal inspection. Neck supple. FROM. No adenopathy. Thyroid Normal. No meningeal signs. No neck mass noted. CVS: Normal heart rate and rhythm. Heart sound normal. No murmurs noted. Pulses normal throughout. Respiratory: No respiratory distress. Painless inspiration. Breath sounds normal. No wheezes/rales/rhonchi noted. Chest nontender. No accessory muscle usage noted or decreased air movement noted. Abdomen: Soft and nontender. Bowel sounds normal in all 4 quadrants. No distention noted. No organomegaly noted. No visible injury noted. Back: No CVA tenderness. Full range of motion noted. Skin: Skin warm and dry. Normal skin color. Normal skin turgor. No rashes/lesions/lacerations noted. Extremities: No lower extremity edema. Extremities exhibit normal range of motion. Extremities nontender. Neuro: Oriented X 3. Cranial nerve exam: II-XII are grossly intact No motor deficit. No sensory deficit. Reflexes normal. Course Course Course Narrative: 62-year-old male came in for evaluation after fall with syncopal loss of consciousness, likely due to severe dehydration, patient at risk of aspiration pneumonia due to extensive postradiation complication to the throat, patient found to have a fever and tachycardia and leukocytosis and x-ray is showing possible leukocytosis. Medical Decision Making Lab Data Lab results reviewed: Yes I reviewed the patient's lab results. Result diagrams: 06/05/22 00:21 06/05/22 00:21 Labs: Lab Results 06/05/22 06/05/22 06/05/22 Range/Units 00:20 00:20 00:21 WBC 13.7 H (4.8-10.8) X10*3/uL RBC 3.08 L D (4.60-5.80) X10*6/uL Hgb 9.2 L D (14.0-18.0) g/dl Hct 26.9 L D (42.0-52.0) % MCV 87.3 (80.0-98.0) fL MCH 29.9 (27.0-33.0) pg MCHC 34.2 (31.0-36.0) g/dl RDW 14.6 (11.0-16.0) % Plt Count 360 (160-400) X10*3/uL MPV 9.1 L (9.4-12.4) fL Immature Gran % (Auto) 0.4 (0.0-0.4) % Neut % (Auto) 94.3 H (45-73) % Lymph % (Auto) 0.7 L (20-40) % Hodgeman % (Auto) 4.5 (2-11) % Eos % (Auto) 0.0 (0-4) % Baso % (Auto) 0.1 (0-2) % Lymph # (Auto) 0.1 L (1.2-4.9) X10*3/uL Hodgeman # (Auto) 0.6 (0.1-1.2) X10*3/uL Eos # (Auto) 0.0 (0.0-0.4) X10*3/uL Baso # (Auto) 0.0 (0.0-0.2) X10*3/uL Abs Immat Gran (auto) 0.05 H (0.00-0.03) X10*3/uL Absolute Neuts (auto) 12.9 H (2.0-8.3) x10*3/uL Absolute Nucleated RBC 0.000 (0.0-0.012) X10*3/uL Nucleated RBC % (auto) 0.0 (0.0-0.2) /100WBC Smear Tech's Comments VERIFIED PT 14.7 H (10.0-13.1) SEC INR 1.3 H (0.9-1.1) APTT 27.1 (26.0-36.4) SEC Sodium (135-145) mmol/L Potassium (3.3-5.1) mmol/L Chloride (96-108) mmol/L Carbon Dioxide (22-29) mmol/L Anion Gap (12-20) BUN (9-16) mg/dL Creatinine (0.5-1.4) mg/dL Estim Creat Clear Calc Estimated GFR Random Glucose (60-115) mg/dL Lactic Acid (0.5-2.0) mmol/L Calcium (8.4-10.2) mg/dL Total Bilirubin (0.0-1.0) mg/dL Direct Bilirubin (0.0-0.5) mg/dL AST (5-37) U/L ALT (0-40) U/L Alkaline Phosphatase (39-117) U/L Troponin I High Sens 9.2 (<3.5-35.0) ng/L B-Natriuretic Peptide (<100) pg/mL Total Protein (6.5-8.0) g/dL Albumin (3.5-5.0) g/dL Lipase (8-78) U/L Influenza Type A (PCR) (Negative) Influenza Type B (PCR) (Negative) RSV RNA Qual (PCR) (Negative) SARS-CoV-2 RNA (RT-PCR) (Negative) 06/05/22 06/05/22 06/05/22 Range/Units 00:21 00:21 00:21 WBC (4.8-10.8) X10*3/uL RBC (4.60-5.80) X10*6/uL Hgb (14.0-18.0) g/dl Hct (42.0-52.0) % MCV (80.0-98.0) fL MCH (27.0-33.0) pg MCHC (31.0-36.0) g/dl RDW (11.0-16.0) % Plt Count (160-400) X10*3/uL MPV (9.4-12.4) fL Immature Gran % (Auto) (0.0-0.4) % Neut % (Auto) (45-73) % Lymph % (Auto) (20-40) % Hodgeman % (Auto) (2-11) % Eos % (Auto) (0-4) % Baso % (Auto) (0-2) % Lymph # (Auto) (1.2-4.9) X10*3/uL Hodgeman # (Auto) (0.1-1.2) X10*3/uL Eos # (Auto) (0.0-0.4) X10*3/uL Baso # (Auto) (0.0-0.2) X10*3/uL Abs Immat Gran (auto) (0.00-0.03) X10*3/uL Absolute Neuts (auto) (2.0-8.3) x10*3/uL Absolute Nucleated RBC (0.0-0.012) X10*3/uL Nucleated RBC % (auto) (0.0-0.2) /100WBC Smear Tech's Comments PT (10.0-13.1) SEC INR (0.9-1.1) APTT (26.0-36.4) SEC Sodium 134 L (135-145) mmol/L Potassium 4.6 (3.3-5.1) mmol/L Chloride 99 (96-108) mmol/L Carbon Dioxide 25 (22-29) mmol/L Anion Gap 15 (12-20) BUN 33 H (9-16) mg/dL Creatinine 0.73 (0.5-1.4) mg/dL Estim Creat Clear Calc 93.1 Estimated GFR > 60 Random Glucose 173 H (60-115) mg/dL Lactic Acid (0.5-2.0) mmol/L Calcium 7.9 L D (8.4-10.2) mg/dL Total Bilirubin 0.5 (0.0-1.0) mg/dL Direct Bilirubin 0.3 (0.0-0.5) mg/dL AST 39 H D (5-37) U/L ALT 41 H (0-40) U/L Alkaline Phosphatase 158 H D (39-117) U/L Troponin I High Sens (<3.5-35.0) ng/L B-Natriuretic Peptide 19 (<100) pg/mL Total Protein 5.4 L D (6.5-8.0) g/dL Albumin 2.9 L D (3.5-5.0) g/dL Lipase 10 (8-78) U/L Influenza Type A (PCR) NEGATIVE (Negative) Influenza Type B (PCR) NEGATIVE (Negative) RSV RNA Qual (PCR) NEGATIVE (Negative) SARS-CoV-2 RNA (RT-PCR) NEGATIVE (Negative) 06/05/22 Range/Units 01:04 WBC (4.8-10.8) X10*3/uL RBC (4.60-5.80) X10*6/uL Hgb (14.0-18.0) g/dl Hct (42.0-52.0) % MCV (80.0-98.0) fL MCH (27.0-33.0) pg MCHC (31.0-36.0) g/dl RDW (11.0-16.0) % Plt Count (160-400) X10*3/uL MPV (9.4-12.4) fL Immature Gran % (Auto) (0.0-0.4) % Neut % (Auto) (45-73) % Lymph % (Auto) (20-40) % Hodgeman % (Auto) (2-11) % Eos % (Auto) (0-4) % Baso % (Auto) (0-2) % Lymph # (Auto) (1.2-4.9) X10*3/uL Hodgeman # (Auto) (0.1-1.2) X10*3/uL Eos # (Auto) (0.0-0.4) X10*3/uL Baso # (Auto) (0.0-0.2) X10*3/uL Abs Immat Gran (auto) (0.00-0.03) X10*3/uL Absolute Neuts (auto) (2.0-8.3) x10*3/uL Absolute Nucleated RBC (0.0-0.012) X10*3/uL Nucleated RBC % (auto) (0.0-0.2) /100WBC Smear Tech's Comments PT (10.0-13.1) SEC INR (0.9-1.1) APTT (26.0-36.4) SEC Sodium (135-145) mmol/L Potassium (3.3-5.1) mmol/L Chloride (96-108) mmol/L Carbon Dioxide (22-29) mmol/L Anion Gap (12-20) BUN (9-16) mg/dL Creatinine (0.5-1.4) mg/dL Estim Creat Clear Calc Estimated GFR Random Glucose (60-115) mg/dL Lactic Acid 1.8 (0.5-2.0) mmol/L Calcium (8.4-10.2) mg/dL Total Bilirubin (0.0-1.0) mg/dL Direct Bilirubin (0.0-0.5) mg/dL AST (5-37) U/L ALT (0-40) U/L Alkaline Phosphatase (39-117) U/L Troponin I High Sens (<3.5-35.0) ng/L B-Natriuretic Peptide (<100) pg/mL Total Protein (6.5-8.0) g/dL Albumin (3.5-5.0) g/dL Lipase (8-78) U/L Influenza Type A (PCR) (Negative) Influenza Type B (PCR) (Negative) RSV RNA Qual (PCR) (Negative) SARS-CoV-2 RNA (RT-PCR) (Negative) Imaging Data Chest x-ray: Attestation: I personally reviewed and interpreted this imaging study as follows: Radiologist's impression: Lung opacities appear minimally improved when compared to prior. ECG Data Attestation: I personally reviewed and interpreted this ECG as follows: Interpretation: Sinus tachycardia at 120 beats per minutes, normal axis deviation, normal intervals, nonspecific T-wave abnormalities. No significant change from previous EKG. Discharge Plan Discharge Clinical Impression: Dehydration, Aspiration pneumonia, Syncope and collapse Patient Disposition: Admitted As Inpatient Prescriptions: No Action carboplatin 10 mg/mL solution continuous IV infusion Erbitux 100 mg/50 mL solution IV paclitaxel 6 mg/mL concentrate IV
[2022-06-05] VITALS (10 sets, daily range): BP systolic 102–143; BP diastolic 55–86; PULSE 86–109; RESP 15–20; TEMP 36.4–38.8; O2SAT 95–98; BMI 18.5
[2022-06-05 00:30] LABS: Basophils Percent Auto 0.1 % (0-2); Hematocrit 26.9 % (42.0-52.0); Hemoglobin 9.2 g/dl (14.0-18.0); Imm Gran Abs Auto 0.05 X10*3/uL (0.00-0.03); Imm Gran Pct Auto 0.4 % (0.0-0.4); Lymphocytes Absolute Auto 0.1 X10*3/uL (1.2-4.9); Lymphocytes Percent Auto 0.7 % (20-40); MANUAL DIFF FLAG SCAN; Mean Corpuscular HGB Conc 34.2 g/dl (31.0-36.0); Mean Corpuscular Hemoglobin 29.9 pg (27.0-33.0); Mean Corpuscular Volume 87.3 fL (80.0-98.0); Mean Platelet Volume 9.1 fL (9.4-12.4); Monocytes Absolute Auto 0.6 X10*3/uL (0.1-1.2); Monocytes Percent Auto 4.5 % (2-11); Neutrophils Absolute Auto 12.9 x10*3/uL (2.0-8.3); Neutrophils Percent Auto 94.3 % (45-73); Platelet Count 360 X10*3/uL (160-400); Red Blood Count 3.08 X10*6/uL (4.60-5.80); Red Cell Distribution Width 14.6 % (11.0-16.0); SCAN SMEAR FLAG 1; White Blood Count 13.7 X10*3/uL (4.8-10.8)
[2022-06-05 00:42] LABS: INTERNATIONAL NORM RATIO 1.3 (0.9-1.1); Prothrombin Time 14.7 SEC (10.0-13.1)
[2022-06-05 00:44] LABS: Partial Thromboplastin Time 27.1 SEC (26.0-36.4)
[2022-06-05 00:48] LABS: Alanine Aminotransferase 41 U/L (0-40); Albumin Level 2.9 g/dL (3.5-5.0); Alkaline Phosphatase 158 U/L (39-117); Anion Gap 15 (12-20); Aspartate Amino Transferase 39 U/L (5-37); Bilirubin Direct 0.3 mg/dL (0.0-0.5); Bilirubin Total 0.5 mg/dL (0.0-1.0); Blood Urea Nitrogen 33 mg/dL (9-16); Calcium 7.9 mg/dL (8.4-10.2); Carbon Dioxide 25 mmol/L (22-29); Chloride 99 mmol/L (96-108); Creatinine Clr Calc Pharmacy 93.1; Estimated Glomerular Filt Rate > 60; Glucose Random 173 mg/dL (60-115); Lipase 10 U/L (8-78); Potassium 4.6 mmol/L (3.3-5.1); Sodium 134 mmol/L (135-145); Total Protein 5.4 g/dL (6.5-8.0)
[2022-06-05 00:49] LABS: SLIDE REVIEW VERIFIED
[2022-06-05 00:53] LABS: Troponin-I High Sensitivity 9.2 ng/L (<3.5-35.0)
[2022-06-05 00:53] LABS: B Type Natriuretic Peptide 19 pg/mL (<100)
[2022-06-05 01:06] LABS: Influenza A PCR NEGATIVE (Negative); Influenza B PCR NEGATIVE (Negative); Resp Syncy Virus RNA Qual PCR NEGATIVE (Negative); SARS COV2 PCR INHOUSE NEGATIVE (Negative)
[2022-06-05] MEDS: 0.9 % Sodium Chloride 1,860 ML 1860 ML IV (01:13)
[2022-06-05] MEDS: Piperacillin Sodium/Tazobactam 3.375 GM in 0.9 % Sodium Chloride 50 ML IV (01:14)
[2022-06-05 01:21] LABS: Lactic Acid 1.8 mmol/L (0.5-2.0)
[2022-06-05] MEDS: Azithromycin 500 MG in 0.9 % Sodium Chloride 250 ML 125 MG IV (01:53)
--- NOTE | 2022-06-05 01:59 | P.HPHOSP_ITS ---
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 Patient reports that he syncopized at home in f ront of his , he is not sure how long it lasted but he woke up at home with no confusion, no head injury, no postictal symptoms, and no evidence of loss of bowel or bladder control. Patient reports no previous similar episode. He reports that he was feeling dizzy and lightheaded right before the fall, he reports no palpitations, no chest pain, no worsening shortness of breath although he has had chronic shortness of breath since the radiation to his neck, he has had a chronic cough that has not worsened, reports no fever but has chills, no chest pain, no abdominal pain nausea or vomiting, no diarrhea constipation, no urinary symptoms and no lower extremity edema. Orthostatic vitals were positive for sinus tachycardia , but BP remained stable Other vitals on arrival does show tachycardia with no other significant abnormality Labs are significant for WBC count of 13.7, hemoglobin of 9.2, hematocrit 26.9, lactic acid of 1.8, AST of 39, ALT of 41, alk-phos of 158, UA negative, Chest x-ray shows lung opacities that were present previously but are not improved Patient does reports that he continues to aspirate in spite having a PEG tube in place. Head CT negative, EKG reviewed by me showed sinus tachycardia with no significant ST T wave abnormalities indicative of ACS or arrhythmia Patient will be admitted for further evaluation Review of Systems Review of Systems: Yes all other systems are reviewed and are negative [facility] Medical History Primary squamous cell carcinoma of throat Family History Father No problems noted. Mother No problems noted. Surgical History History of ankle surgery History of biopsy History of inguinal hernia repair History of lung biopsy Social History Alcohol intake: never Patient Tobacco Use Status: Never used Tobacco Use of substances other than those prescribed or required for medical reasons: No Advance Directives: Yes Advance Directives Information Provided: Yes Advance Directives on File: No Advance Directives Date on File: 07/11/20 Meds Allergies Allergy/AdvReac Type Severity Reaction Status Date / Time No Known Drug Allergies Allergy Unknown NONE Verified 01/03/21 15:10 [NO KNOWN DRUG ALLERGIES] Active Medications: Current Medications Azithromycin 500 mg/ Sodium (Chloride) 250 mls @ 125 mls/hr IV ONCE ONE Stop: 06/05/22 03:35 Last Admin: 06/05/22 01:53 Dose: 125 mls/hr Pharmacy Consult (Consult Rx Perform Med Rec) 1 each MISCELLANE ONCE PRN PRN Reason: Consult order Home Medications Medication Instructions Recorded Confirmed Last Taken Type carboplatin 10 mg/mL intravenous continuous IV infusion 01/03/21 01/03/21 Unknown History solution cetuximab 100 mg/50 mL intravenous IV 01/03/21 01/03/21 Unknown History solution (Erbitux) paclitaxel 6 mg/mL IV 01/03/21 01/03/21 Unknown History concentrate,intravenous apixaban 5 mg tablet (Eliquis) 1 tab PO BID 06/05/22 06/05/22 Unknown History gabapentin 100 mg capsule 1 - 2 cap PO BEDTIME 06/05/22 06/05/22 Unknown History paroxetine HCl 10 mg tablet 1 tab PO DAILY 06/05/22 06/05/22 Unknown History Physical Exam Vital Signs and Narrative: Vital Signs: Last Vital Signs Temp 101.8 F H 06/05/22 00:00 Pulse 108 H 06/05/22 00:00 Resp 16 06/05/22 00:00 BP 105/58 L 06/05/22 00:00 Pulse Ox 95 06/05/22 00:00 O2 Del Method 06/05/22 00:00 O2 Flow Rate 6 06/05/22 00:00 Oxygen Flow Rate 15 06/05/22 00:00 BMI result Body Mass Index 18.5 Const: Other: cachectic, emaciated General: cooperative and no acute distress Orientation/consciousness: patient oriented x3 Eyes: General: appearance normal, both eyes and all related structures Pupils: Equal, round and reactive pupils present Resp: Effort & Inspection: normal respiratory effort Auscultation: clear to auscultation bilaterally Cardio: Rate: regular rate Rhythm: regular rhythm GI: Other: PEG tube in place Palpation (GI): Soft to palpation Auscultation: normal bowel sounds Skin: General skin exam: no rashes or lesions noted Neuro: General: patient oriented x3 Cranial nerves: Yes Equal, round and reactive pupils present Cognition (Neuro): normal cognition Extrem: General: Yes normal to inspection and Yes no pedal edema Results Labs CBC and Chem 7: 06/05/22 06:05 06/05/22 00:21 Labs: Laboratory Results - last 24 hr 06/05/22 06/05/22 06/05/22 00:20 00:21 00:21 MCV 87.3 MCH 29.9 MCHC 34.2 RDW 14.6 Plt Count 360 MPV 9.1 L Immature Gran % (Auto) 0.4 Neut % (Auto) 94.3 H Lymph % (Auto) 0.7 L [place] % (Auto) 4.5 Eos % (Auto) 0.0 Baso % (Auto) 0.1 Lymph # (Auto) 0.1 L [place] # (Auto) 0.6 Eos # (Auto) 0.0 Baso # (Auto) 0.0 Abs Immat Gran (auto) 0.05 H Absolute Neuts (auto) 12.9 H Absolute Nucleated RBC 0.000 Nucleated RBC % (auto) 0.0 Smear Tech's Comments VERIFIED PT 14.7 H INR 1.3 H APTT 27.1 Anion Gap 15 Estim Creat Clear Calc 93.1 Estimated GFR > 60 Random Glucose 173 H Lactic Acid Calcium 7.9 L D Total Bilirubin 0.5 Direct Bilirubin 0.3 AST 39 H D ALT 41 H Alkaline Phosphatase 158 H D B-Natriuretic Peptide Total Protein 5.4 L D Albumin 2.9 L D Lipase 10 Influenza Type A (PCR) Influenza Type B (PCR) RSV RNA Qual (PCR) SARS-CoV-2 RNA (RT-PCR) 06/05/22 06/05/22 06/05/22 00:21 00:21 01:04 MCV MCH MCHC RDW Plt Count MPV Immature Gran % (Auto) Neut % (Auto) Lymph % (Auto) [place] % (Auto) Eos % (Auto) Baso % (Auto) Lymph # (Auto) [place] # (Auto) Eos # (Auto) Baso # (Auto) Abs Immat Gran (auto) Absolute Neuts (auto) Absolute Nucleated RBC Nucleated RBC % (auto) Smear Tech's Comments PT INR APTT Anion Gap Estim Creat Clear Calc Estimated GFR Random Glucose Lactic Acid 1.8 Calcium Total Bilirubin Direct Bilirubin AST ALT Alkaline Phosphatase B-Natriuretic Peptide 19 Total Protein Albumin Lipase Influenza Type A (PCR) NEGATIVE Influenza Type B (PCR) NEGATIVE RSV RNA Qual (PCR) NEGATIVE SARS-CoV-2 RNA (RT-PCR) NEGATIVE Imaging Radiologist's Impressions: Impressions Chest X-Ray 06/04/22 23:58 IMPRESSION: Lung opacities appear minimally improved when compared to prior. Head CT 06/05/22 00:02 IMPRESSION: No acute intracranial abnormality including hemorrhage, mass effect, hydrocephalus, or acute territorial edematous infarction. Assessment and Plan (1) Syncope and collapse: Status: Acute (2) Aspiration pneumonia: Status: Acute (3) Sepsis: Status: Acute (4) Sinus tachycardia: Status: Acute (5) Elevated d-dimer: Status: Acute (6) Leukocytosis: Status: Acute Plan 62-year-old male with past medical history of squamous cell carcinoma of the throat with metastasis to the lung presents to the hospital with syncopal episode # syncope - vasovagal versus neurogenic versus cardiogenic less likely - patient does have an acute illness in the form of likely aspiration pneumonia, and has significant sinus tachycardia with no evidence of arrhythmia on EKG - no history of cardiac disease - at this time will admit to telemetry - orthostatic BP is were negative per patient has significant change in heart rate - IV fluids # aspiration pneumonia - has history of aspiration pneumonia, with chest x-ray showing no improvement infiltrate - patient afebrile, has leukocytosis - will treat with IV antibiotics - follow cultures # sepsis - meets sepsis criteria with tachycardia, febrile, leukocytosis - normal lactic acid - source likely lungs - will treat with IV antibiotics - received IV fluid - follow cultures # sinus tachycardia - likely can be attributed to fever as well as acute infection, but given his history of cancer as well as elevated D-dimer of will obtain CT angiogram with PE protocol to rule out pulmonary embolism - of note patient was of his Eliquis for 3 days due to minor surgery done recently - monitor DVT prophylaxis: Dadaquis Quality Stroke Does the patient have a stroke diagnosis?: No VTE Prior VTE?: No VTE Risk Level:: Medical - moderate - high VTE Device Contraindication: Treatment Not Indicated VTE Drug Contraindication: N/A - Med Ordered
[2022-06-05 02:07] LABS: D Dimer High Sensitivity 1115 NG/ML
[2022-06-05] MEDS: Ampicillin Sodium/Sulbactam Na 3 GM in 0.9 % Sodium Chloride 100 ML IV ×3 (02:18→18:34)
[2022-06-05] MEDS: Heparin Sodium,Porcine 5,000 UNIT/ML VIAL 5000 UNIT SUBCUT (02:21)
[2022-06-05] MEDS: Lactated Ringers 1,000 ML 100 ML IVCONT ×2 (02:54→14:08)
[2022-06-05 04:24] LABS: Appearance Urine Cloudy; Color Urine Yellow; Glucose Urine UA Negative (Negative); Leukocyte Esterase Urine Negative (Negative); Nitrite Urine Negative (Negative); Urine Blood Negative (Negative); Urine Ketones Negative (Negative); Urine Protein Trace mg/dL (Neg-Trace)
[2022-06-05 06:23] LABS: Basophils Percent Auto 0.2 % (0-2); Hematocrit 25.3 % (42.0-52.0); Hemoglobin 8.3 g/dl (14.0-18.0); Imm Gran Abs Auto 0.03 X10*3/uL (0.00-0.03); Imm Gran Pct Auto 0.2 % (0.0-0.4); Lymphocytes Absolute Auto 0.2 X10*3/uL (1.2-4.9); MANUAL DIFF FLAG SCAN; Mean Corpuscular HGB Conc 32.8 g/dl (31.0-36.0); Mean Corpuscular Hemoglobin 29.1 pg (27.0-33.0); Mean Corpuscular Volume 88.8 fL (80.0-98.0); Mean Platelet Volume 9.2 fL (9.4-12.4); Monocytes Absolute Auto 0.8 X10*3/uL (0.1-1.2); Monocytes Percent Auto 6.2 % (2-11); Neutrophils Absolute Auto 11.1 x10*3/uL (2.0-8.3); Neutrophils Percent Auto 91.4 % (45-73); Platelet Count 365 X10*3/uL (160-400); Red Blood Count 2.85 X10*6/uL (4.60-5.80); Red Cell Distribution Width 14.8 % (11.0-16.0); SCAN SMEAR FLAG 1; White Blood Count 12.2 X10*3/uL (4.8-10.8)
[2022-06-05 07:00] LABS: Anion Gap 13 (12-20); Blood Urea Nitrogen 25 mg/dL (9-16); Calcium 7.7 mg/dL (8.4-10.2); Carbon Dioxide 25 mmol/L (22-29); Chloride 102 mmol/L (96-108); Estimated Glomerular Filt Rate > 60; Glucose Random 130 mg/dL (60-115); Potassium 4.6 mmol/L (3.3-5.1); Sodium 135 mmol/L (135-145)
--- NOTE | 2022-06-05 07:30 | PC.NURSE ---
pt off to ct scan via w/c
[2022-06-05] MEDS: iohexoL 350 MG/ML 100 ML INFUS..BTL IV (08:14)
[2022-06-05] MEDS: 0.9 % Sodium Chloride Flush 3 ML SYRINGE IVFLUSH ×2 (08:20→18:20)
--- NOTE | 2022-06-05 08:28 | PC.NURSE ---
pt a/o x 4 no sob/jadyn noted lungs - diminished all lobes. speaks in full sentences. 02 sat 96% on 3l/m ia n/c. heart sounds - irregular. abd soft and n/t, hypoactive in all 4 quads. g-tube in place, patent.
--- NOTE | 2022-06-05 08:45 | PHA.MEDREC ---
Pharmacy Consult ? Medication Reconciliation Pharmacy has completed the medication reconciliation.Spoke with patient in the ED. Patient was told to stop eliquis on 06/03/22 because he has a biopsy scheduled for today (06/05/22). Patient is NOT taking paroxetine.
[2022-06-05 09:42] LABS: Iron 11 mcg/dL (45-160); Percent Iron Saturation 7 % (15-50); Total Iron Binding Capacity 169 mcg/dL (228-428); Unsaturated Iron Binding 158 ug/dL
[2022-06-05 10:02] LABS: Ferritin 1173 ng/mL (20-250)
--- NOTE | 2022-06-05 10:15 | MHC.CM.PN ---
Addendum entered by Nenita Mei 06/05/22 10:44: Patient has a g tube due to dysphagia after esophageal cancer treatment. Per patient and Sherice, they have a [employer] brand tube feed. They provide bolus feeding at home. Original Note: Met with patient and , Sherice, in regards to discharge planning. Patient lives with his , ambulates independently and had no services prior to coming to the hospital. Patient and Sherice feel patient would benefit from VNA at discharge. Requesting referral to [facility]. [facility]. Patient is currently on oxygen. He does not use oxygen at home. PCP verified. Copy of HCP obtained from [facility]. Patient received 1 J&J vaccine and 1 Moderna booster. Obs notice explained and signed. Sherice will transport patient home when medically stable. Continue to monitor for d/c needs.
[2022-06-05 10:26] LABS: Folate 7.8 ng/mL (> or = 4.0); Vitamin B12 753 pg/mL (200-900)
--- NOTE | 2022-06-05 10:48 | MHC.CLN ---
RE: CONSULT PT IS SEVERELY MALNOURISHED PT WITH SEVERELY DEPLETED SUBCUTANEOUS FAT AND MUSCLE MASS, BMI 18.5 AND 27% SIGNIFICANT WT LOSS X 16 MONTHS PT REPORTS HE CONTINUES TO TAKE PO BY MOUTH DESPITE KNOWING RISKS FOR ASPIRATION. PT TAKES NESTLE BRAND BOLUS TF AT HOME (UNABLE TO GIVE FULL NAME OR AMOUNT) SPOKE WITH PT AND ABOUT CHANGING FORMULA WHILE IN HOSPITAL TO CONTINUOUS TF TO REDUCE RISK FOR ASPIRATION. PT AND IN AGREEMENT RECOMMEND PROMOTE AT MAX GOAL RATE 75ML/HR WITH 240ML FREE WATER FLUSHES Q 8 HOURS TO PROVIDE 1800KCALS (29KCALS/KG), 112.5G PROTEIN (1.8G/KG), 2230ML TOTAL WATER FROM FORMULA AND FLUSHES (36ML/KG) START FORMULA AT 20ML/HR AND INCREASE BY 10ML Q 4 HRS UNTIL MAX GOAL IS ACHIEVED MONITOR TOLERANCE, RESIDUALS AND LYTES SEE ALSO FULL CLINICAL NUTRITION ASSESSMENT
[2022-06-05] MEDS: PARoxetine HCL 10 MG TABLET G-TUBE (11:24)
[2022-06-05] MEDS: Apixaban 5 MG TABLET G-TUBE ×2 (11:24→21:14)
--- NOTE | 2022-06-05 11:48 | P.PNIM_ITS ---
Subjective Subjective Date of Service: 06/05/22 Interval History: Seen and examined this morning Follow-up for syncope reports having some rectal bleeding 2 nights ago with some possible clots. no further bleeding since; also reports episode of bleeding a few weeks ago Denies dizziness at this time. no chest pain. always reports some level of sob and cough due to h/o radiation and related airway issues Review of Systems Review of Systems: Yes all other systems are reviewed and are negative Constitutional Constitutional: Denies chills and Denies fever(s) ENT Ears, Nose, Mouth, and Throat: Denies dizziness Cardiovascular Cardiovascular: Denies chest pain, Denies palpitations and Reports dyspnea Respiratory Respiratory: Reports cough and Reports dyspnea Neurologic Neurologic: Denies dizziness Endocrine Endocrine: Denies palpitations Physical Exam Vital Signs: Vital Signs: Last Vital Signs Temp 98.0 F 06/05/22 09:21 Pulse 97 06/05/22 09:21 Resp 15 06/05/22 09:21 BP 143/86 H 06/05/22 09:21 Pulse Ox 96 06/05/22 09:21 O2 Del Method 06/05/22 09:21 O2 Flow Rate 2 06/05/22 09:21 Oxygen Flow Rate 15 06/05/22 00:00 BMI result Body Mass Index 18.5 Const: Other: chronically ill appearing General: comfortable and no acute distress Nutritional Appearance: thin Orientation/consciousness: patient oriented x3 Resp: Other: diminished breath sounds; right basilar rales Effort & Inspection: normal respiratory effort and able to speak in complete sentences Cardio: Rate: regular rate Heart sounds: S1 normal heart sound present and S2 normal heart sound present GI: Other: gtube present Inspection: No distended Palpation (GI): Soft to palpation and nontender Neuro: Other: grossly nonfocal General: patient oriented x3 Extrem: General: Yes no pedal edema Objective Data Active Medications Acetaminophen (Acetaminophen 325 Mg Tablet) 650 mg G-TUBE Q6H PRN PRN Reason: Pain, Mild (Pain Scale 1-3) Albuterol Sulfate (Albuterol Sulfate 90 Mcg 8 Gm Inhaler) 2 puff INHALE Q6H PRN PRN Reason: wheezing Apixaban (Apixaban 5 Mg Tablet) 5 mg G-TUBE BID ERVIN Last Admin: 06/05/22 11:24 Dose: 5 mg Documented By: ZACHARY Docusate Sodium (Docusate Sodium 100 Mg/10 Ml Liquid) 100 mg G-TUBE DAILY PRN PRN Reason: Constipation Famotidine (Famotidine 20 Mg Tablet) 20 mg G-TUBE BID PRN PRN Reason: indigestion Gabapentin (Gabapentin 100 Mg Capsule) 200 mg G-TUBE BEDTIME [facility] Ampicillin Sodium/Sulbactam (Sodium 3 gm/ Sodium Chloride) 100 mls @ 200 mls/hr IV Q8H [facility] Last Admin: 06/05/22 10:13 Dose: 200 mls/hr Documented By: ZACHARY Lactated Ringer's (Lr) 1,000 mls @ 100 mls/hr IVCONT .Q10H [facility] Last Admin: 06/05/22 02:54 Dose: 100 mls/hr Documented By: JEO Ipratropium [place] (Ipratropium [place] 1 Puff/17 Mcg Inhaler) 2 puff INHALE RQ6H [facility] Levothyroxine Sodium (Levothyroxine Sodium 112 Mcg Tablet) 112 mcg G-TUBE DA RAS@0630 [facility] Ondansetron HCl (Ondansetron Hcl 4 Mg/2 Ml Vial) 4 mg IVPUSH Q8H PRN PRN Reason: Nausea and Vomiting Paroxetine HCl (Paroxetine Hcl 10 Mg Tablet) 10 mg G-TUBE DAILY [facility] Last Admin: 06/05/22 11:24 Dose: 10 mg Documented By: ZACHARY Pharmacy Consult (Consult Rx Perform Med Rec) 1 each MISCELLANE ONCE PRN PRN Reason: Consult order Sodium Chloride (0.9 % Sodium Chloride Flush 3 Ml Syringe) 3 ml IVFLUSH QSHIFT [facility] Last Admin: 06/05/22 08:20 Dose: 3 ml Documented By: ANGEL Labs CBC & Chem 7: 06/05/22 06:05 06/05/22 06:05 Labs: Laboratory Results - last 24 hr 06/05/22 06/05/22 06/05/22 00:20 00:21 00:21 MCV 87.3 MCH 29.9 MCHC 34.2 RDW 14.6 Plt Count 360 MPV 9.1 L Immature Gran % (Auto) 0.4 Neut % (Auto) 94.3 H Lymph % (Auto) 0.7 L [place] % (Auto) 4.5 Eos % (Auto) 0.0 Baso % (Auto) 0.1 Lymph # (Auto) 0.1 L [place] # (Auto) 0.6 Eos # (Auto) 0.0 Baso # (Auto) 0.0 Abs Immat Gran (auto) 0.05 H Absolute Neuts (auto) 12.9 H Absolute Nucleated RBC 0.000 Nucleated RBC % (auto) 0.0 Smear Tech's Comments VERIFIED PT 14.7 H INR 1.3 H APTT 27.1 D-Dimer High Sensitivty 1115 Anion Gap 15 Estim Creat Clear Calc 93.1 Estimated GFR > 60 Random Glucose 173 H Lactic Acid Calcium 7.9 L D Iron TIBC % Saturation Unsat Iron Binding Ferritin Total Bilirubin 0.5 Direct Bilirubin 0.3 AST 39 H D ALT 41 H Alkaline Phosphatase 158 H D B-Natriuretic Peptide Total Protein 5.4 L D Albumin 2.9 L D Lipase 10 Vitamin B12 Folate Urine Color Urine Appearance Urine pH Ur Specific [place] Urine Protein Urine Glucose (UA) Urine Ketones Urine Blood Urine Nitrite Ur Leukocyte Esterase Influenza Type A (PCR) Influenza Type B (PCR) RSV RNA Qual (PCR) SARS-CoV-2 RNA (RT-PCR) 06/05/22 06/05/22 06/05/22 00:21 00:21 01:04 MCV MCH MCHC RDW Plt Count MPV Immature Gran % (Auto) Neut % (Auto) Lymph % (Auto) [place] % (Auto) Eos % (Auto) Baso % (Auto) Lymph # (Auto) [place] # (Auto) Eos # (Auto) Baso # (Auto) Abs Immat Gran (auto) Absolute Neuts (auto) Absolute Nucleated RBC Nucleated RBC % (auto) Smear Tech's Comments PT INR APTT D-Dimer High Sensitivty Anion Gap Estim Creat Clear Calc Estimated GFR Random Glucose Lactic Acid 1.8 Calcium Iron TIBC % Saturation Unsat Iron Binding Ferritin Total Bilirubin Direct Bilirubin AST ALT Alkaline Phosphatase B-Natriuretic Peptide 19 Total Protein Albumin Lipase Vitamin B12 Folate Urine Color Urine Appearance Urine pH Ur Specific [place] Urine Protein Urine Glucose (UA) Urine Ketones Urine Blood Urine Nitrite Ur Leukocyte Esterase Influenza Type A (PCR) NEGATIVE Influenza Type B (PCR) NEGATIVE RSV RNA Qual (PCR) NEGATIVE SARS-CoV-2 RNA (RT-PCR) NEGATIVE 06/05/22 06/05/22 06/05/22 04:19 06:05 06:05 MCV 88.8 MCH 29.1 MCHC 32.8 RDW 14.8 Plt Count 365 MPV 9.2 L Immature Gran % (Auto) 0.2 Neut % (Auto) 91.4 H Lymph % (Auto) 2.0 L [place] % (Auto) 6.2 Eos % (Auto) 0.0 Baso % (Auto) 0.2 Lymph # (Auto) 0.2 L [place] # (Auto) 0.8 Eos # (Auto) 0.0 Baso # (Auto) 0.0 Abs Immat Gran (auto) 0.03 Absolute Neuts (auto) 11.1 H Absolute Nucleated RBC 0.000 Nucleated RBC % (auto) 0.0 Smear Tech's Comments PT INR APTT D-Dimer High Sensitivty Anion Gap 13 Estim Creat Clear Calc 103.0 Estimated GFR > 60 Random Glucose 130 H Lactic Acid Calcium 7.7 L Iron 11 L TIBC 169 L % Saturation 7 L Unsat Iron Binding 158 Ferritin 1173 H Total Bilirubin Direct Bilirubin AST ALT Alkaline Phosphatase B-Natriuretic Peptide Total Protein Albumin Lipase Vitamin B12 Folate Urine Color Yellow Urine Appearance Cloudy Urine pH 7.0 Ur Specific [place] 1.020 Urine Protein Trace Urine Glucose (UA) Negative Urine Ketones Negative Urine Blood Negative Urine Nitrite Negative Ur Leukocyte Esterase Negative Influenza Type A (PCR) Influenza Type B (PCR) RSV RNA Qual (PCR) SARS-CoV-2 RNA (RT-PCR) 06/05/22 06:05 MCV MCH MCHC RDW Plt Count MPV Immature Gran % (Auto) Neut % (Auto) Lymph % (Auto) [place] % (Auto) Eos % (Auto) Baso % (Auto) Lymph # (Auto) [place] # (Auto) Eos # (Auto) Baso # (Auto) Abs Immat Gran (auto) Absolute Neuts (auto) Absolute Nucleated RBC Nucleated RBC % (auto) Smear Tech's Comments PT INR APTT D-Dimer High Sensitivty Anion Gap Estim Creat Clear Calc Estimated GFR Random Glucose Lactic Acid Calcium Iron TIBC % Saturation Unsat Iron Binding Ferritin Total Bilirubin Direct Bilirubin AST ALT Alkaline Phosphatase B-Natriuretic Peptide Total Protein Albumin Lipase Vitamin B12 753 Folate 7.8 Urine Color Urine Appearance Urine pH Ur Specific [place] Urine Protein Urine Glucose (UA) Urine Ketones Urine Blood Urine Nitrite Ur Leukocyte Esterase Influenza Type A (PCR) Influenza Type B (PCR) RSV RNA Qual (PCR) SARS-CoV-2 RNA (RT-PCR) 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 presents to the hospital with syncopal episode syncope orthostatic BP is were negative but patient has significant change in heart rate - IV fluids - tele monitoring - cardiology consult pending sepsis secondary to aspiration pneumonia fever 101.8, tachycardia and leukocytosis lactic acid wnl, no severe features -continue IV unasyn -follow blood cultures GI bleeding Eliquis has been on hold for 3 days for liver biopsy that was planned for today at [facility] (was cancelled by facility; ?pt states biopsy was to be obtained before a new trial of medication for his cancer) iron studies c/w iron deficiency -hold Eliquis -GI conult -follow CBC acute on chronic anemia r/t iron deficiency and acute blood loss -follow CBC -GI consult right lower extremity DVT diagnosed approximately 6 weeks ago -Eliquis on hold for GIB mild elevation in LFTs -trend liver function -GI consult metastatic SCC 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 Reticular nodular changes seen in both lower lobes likely lymphatic involvement follows with [facility] - outpatient follow up Severe protein-calorie malnutrition seen by nutrition continue tube feedings - will change to continuous feedings during hospitalization, may benefit from continuing upon discharge to lower risk of aspiration per nutrition hypothyroidism continu synthroid DVT prophylaxis: Eliquis on hold for gib attending - dr. cunningham patient requires ongoing inpatient hospitalization due to workup for syncope, anemia, GI bleeding and treatment for aspiration pneumonia Quality Stroke Does the patient have a stroke diagnosis?: No VTE Prior VTE?: No VTE Risk Level:: Medical - moderate - high VTE Device Contraindication: Treatment Not Indicated VTE Drug Contraindication: N/A - Med Ordered
--- NOTE | 2022-06-05 13:10 | CA_ITS ---
Transthoracic Echocardiogram Patient (Last, First, Middle): Adrian Mitchell M Gender: Male Date of : 1960 Age: 62 Procedure Date: 06/05/2022 Procedure Type: Transthoracic Echocardiogram Location: ER Height: 185.42 cm Weight: 61.69 kg BSA: 1.83 m2 Heart Rate: 88 bpm BP: 143 / 86 mmHg Education Liaison: SB Referring MD: Veronica SEN Symptoms: syncope Study Quality: Adequate ECG Rhythm: Sinus Conclusions: - Normal left ventricular cavity size. There is normal left ventricular wall thickness. The left ventricular systolic function is low normal. The visually estimated ejection fraction is between 50-55%. - The basal inferior segment is akinetic. - Normal right ventricular cavity size and systolic function. Findings Left Ventricle Normal left ventricular cavity size. There is normal left ventricular wall thickness. The left ventricular systolic function is low normal. The visually estimated ejection fraction is between 50-55%. There is evidence of regional wall motion abnormalities. Abnormal diastolic function is noted. Spectral Doppler is indicative of an impaired relaxation filling pattern. E/E prime ratio is between 8 and 15 consistent with indeterminate filling pressures. Reduced global longitudinal strain values. Wall Motion Rest Echo Findings The basal inferior segment is akinetic. Right Ventricle Normal right ventricular cavity size and systolic function. Atria The left atrium is normal in size. The right atrium is normal in size. Aortic Valve The aortic valve structure and function is likely normal. There is no aortic valve stenosis. There is no aortic valve regurgitation. Mitral Valve The mitral valve appears normal. There is mild mitral valve regurgitation. There is no mitral valve stenosis. Pulmonic Valve The pulmonic valve is likely normal. Tricuspid Valve Normal tricuspid valve structure and function. There is no tricuspid valve regurgitation. Normal right atrial pressure. Great Vessels All visible segments of the aorta are normal in size. The visualized portions of the pulmonary artery and branches are normal. Venous The inferior vena cava is normal in size and collapses greater than 50% with inspiration. Pericardium/Pleural There is no evidence of pericardial effusion. Prior Study Comparison Changes noted compared to prior study dated: 07/12/2020. EF 50-55%, basal inferior hypokinesis. Measurements 2D Linear Measurements IVSd: 1.00 0.6-0.9/0.6-1.0 cm LVIDd: 5.54 3.9-5.3/4.2-5.9 cm LVIDs: 4.09 2.0-3.6 cm LVPWd: 0.86 0.7-1.1 cm LA Diam: 3.90 2.7-3.8/3.0-4.0 cm LV Mass: 244.26 67-162/88-224 g LVOT Diam: 2.50 3.0+(-)1.3 cm 2D Systolic Function EF 4C: 46.20 >55% EF 2C: 45.80 >55% EF BiP: 49.70 >55% Mitral Valve MV Pk E: 0.72 MV PK A: 0.83 MV Decel Time: 167.00 E/A: 0.90 E'Lateral: 8.05 E'Medial: 7.40 E/E' Med: 9.80 E/E' Lat: 9.00 PHT: 49.00 MVA PHT: 4.49 Decel Hutchinson: 4.32 Aortic Valve AoV Pk Martir: 1.06 AoV Mn Martir: 0.75 AoV VTI: 0.19 AoV Pk Grad: 4.00 Aov Mn Grad: 3.00 ANDREA Cont.VTI: 3.85 LVOT LVOT Pk Martir: 0.82 LVOT Mn Martir: 0.55 LVOT VTI: 0.15 LVOT Pk Grad: 3.00 LVOT Mn Grad: 1.00 LVOT Diam: 2.50 LVOT Area: 4.91 Diastolic Function MV Pk E: 0.72 MV Pk A: 0.83 E/A: 0.90 E'Medial: 7.40 E/E' Med: 9.80 E' Laterial: 8.05 E/E' Lat: 9.00 Right Ventricle TAPSE (mm): 16.00 TVS' Martir: 18.20 Tricuspid Valve TR Pk Martir: 2.14 TR Pk Grad: 18.00 RA Press: 8.00 RVSP: 26.00 Great Vessels Aorta Sinus of Valsalva: 3.70 2.0-3.5 cm Ao Asc: 3.30 2.1-3.4 cm Pulmonary Veins Pulm Vein S/D 1.80 Pulmonary Valve PV Pk Martir: 0.80 Peak PV Grad: 3.00 Updated in Other Vendor System with Status of Final Mik Mosqueda MD electronically signed on 06/05/2022 3:39:41 PM with status of Final
--- NOTE | 2022-06-05 13:30 | PC.NURSE ---
ECHOCARDDIOGRAM BEING DONE AT BEDSIDE.
[2022-06-05] MEDS: Ipratropium Bromide 1 PUFF/17 MCG INHALER 2 PUFF INHALE ×2 (13:33→17:02)
--- NOTE | 2022-06-05 14:49 | P.CONCA_ITS ---
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 He has lung Mets. He has been dependent on PEG tube for feeds. He is presenting for syncope. He said he was feeling dehydrated because he was not getting enough fluids through the back to. He said he walked to the restroom to pass urine and on his way back he felt dizzy and then passed out. He did not have any chest discomfort shortness of breath at that time. He did not feel hot or flushed. He has been diagnosed with aspiration pneumonia at this point and has been started on antibiotics. He did not have any pulmonary embolism noticed on the CT scan. He has not had syncope previously. [facility] Past Medical History Medical History Primary squamous cell carcinoma of throat Family History Family History Father No problems noted. Mother No problems noted. Surgical History Surgical History History of ankle surgery History of biopsy History of inguinal hernia repair History of lung biopsy Social History Social History Alcohol intake: never Patient Tobacco Use Status: Never used Tobacco Advance Directives Date on File: 06/05/22 service: No Current occupational status: retired Meds Allergies Allergy/AdvReac Type Severity Reaction Status Date / Time No Known Drug Allergies Allergy Unknown NONE Verified 01/03/21 15:10 [NO KNOWN DRUG ALLERGIES] Active Medications: Current Medications Acetaminophen (Acetaminophen 325 Mg Tablet) 650 mg G-TUBE Q6H PRN PRN Reason: Pain, Mild (Pain Scale 1-3) Albuterol Sulfate (Albuterol Sulfate 90 Mcg 8 Gm Inhaler) 2 puff INHALE Q6H PRN PRN Reason: wheezing Albuterol/Ipratropium (Albuterol/Iprat 2.5/0.5mg 3 Ml Ampul.Neb) 3 ml INHALE RQ4H PRN PRN Reason: Shortness of Breath/Wheezing Apixaban (Apixaban 5 Mg Tablet) 5 mg G-TUBE BID [facility] Last Admin: 06/05/22 11:24 Dose: 5 mg Docusate Sodium (Docusate Sodium 100 Mg/10 Ml Liquid) 100 mg G-TUBE DAILY PRN PRN Reason: Constipation Famotidine (Famotidine 20 Mg Tablet) 20 mg G-TUBE BID PRN PRN Reason: indigestion Gabapentin (Gabapentin 100 Mg Capsule) 200 mg G-TUBE BEDTIME [facility] Ampicillin Sodium/Sulbactam (Sodium 3 gm/ Sodium Chloride) 100 mls @ 200 mls/hr IV Q8H [facility] Last Infusion: 06/05/22 11:30 Dose: Infused Lactated Ringer's (Lr) 1,000 mls @ 100 mls/hr IVCONT .Q10H [facility] Last Admin: 06/05/22 14:08 Dose: 100 mls/hr Ipratropium Free[place] (Ipratropium [place] 1 Puff/17 Mcg Inhaler) 2 puff INHALE RQ6H [facility] Last Admin: 06/05/22 13:33 Dose: 2 puff Levothyroxine Sodium (Levothyroxine Sodium 112 Mcg Tablet) 112 mcg G-TUBE DAILY@0630 [facility] Ondansetron HCl (Ondansetron Hcl 4 Mg/2 Ml Vial) 4 mg IVPUSH Q8H PRN PRN Reason: Nausea and Vomiting Paroxetine HCl (Paroxetine Hcl 10 Mg Tablet) 10 mg G-TUBE DAILY [facility] Last Admin: 06/05/22 11:24 Dose: 10 mg Pharmacy Consult (Consult Rx Perform Med Rec) 1 each MISCELLANE ONCE PRN PRN Reason: Consult order Sodium Chloride (0.9 % Sodium Chloride Flush 3 Ml Syringe) 3 ml IVFLUSH QSHIFT [facility] Last Admin: 06/05/22 08:20 Dose: 3 ml Home Medications Medication Instructions Recorded Confirmed Last Taken Type albuterol sulfate 90 mcg/actuation 2 puff inhalation Q6H PRN wheezing 06/05/22 06/05/22 Unknown History aerosol inhaler apixaban 5 mg tablet (Eliquis) 1 tab PO BID 06/05/22 06/05/22 06/03/22 History famotidine 20 mg tablet 1 tab PO BID PRN indigestion 06/05/22 06/05/22 Unknown History gabapentin 100 mg capsule 2 cap PO BEDTIME 0906/05/22 06/04/22 History ipratropium bromide 17 2 puff inhalation Q6H 06/05/22 06/05/22 06/04/22 History mcg/actuation HFA aerosol inhaler (Atrovent HFA) levothyroxine 112 mcg tablet 1 tab PO DAILY@0630 06/05/22 06/05/22 06/04/22 History Physical Exam Vital Signs: Vital Signs: Last Vital Signs Temp 97.6 F 06/05/22 13:10 Pulse 86 06/05/22 13:33 Resp 18 06/05/22 13:33 BP 130/78 06/05/22 13:10 Pulse Ox 96 06/05/22 13:10 O2 Del Method 06/05/22 13:10 O2 Flow Rate 2 06/05/22 13:10 Oxygen Flow Rate 15 06/05/22 00:00 BMI result Body Mass Index 18.5 GENERAL APPEARANCE: Cachectic. Hoarseness of voice. NECK: no carotid bruit, no jugular venous distention. SKIN: no suspicious lesions, warm and dry. HEART: no murmurs, regular rate and rhythm. LUNGS: Crackles both bases. ABDOMEN: soft, nontender. EXTREMITIES: no edema. PERIPHERAL PULSES: equal. NEUROLOGIC: No gross deficits, AAO X 3 Objective Labs and Meds Result diagrams: 06/05/22 06:05 06/05/22 06:05 Lab results: Laboratory Results - last 24 hr 06/05/22 06/05/22 06/05/22 00:20 00:20 00:21 WBC 13.7 H RBC 3.08 L D Hgb 9.2 L D Hct 26.9 L D MCV 87.3 MCH 29.9 MCHC 34.2 RDW 14.6 Plt Count 360 MPV 9.1 L Immature Gran % (Auto) 0.4 Neut % (Auto) 94.3 H Lymph % (Auto) 0.7 L [place] % (Auto) 4.5 Eos % (Auto) 0.0 Baso % (Auto) 0.1 Lymph # (Auto) 0.1 L [place] # (Auto) 0.6 Eos # (Auto) 0.0 Baso # (Auto) 0.0 Abs Immat Gran (auto) 0.05 H Absolute Neuts (auto) 12.9 H Absolute Nucleated RBC 0.000 Nucleated RBC % (auto) 0.0 Smear Tech's Comments VERIFIED PT 14.7 H INR 1.3 H APTT 27.1 D-Dimer High Sensitivty 1115 Sodium Potassium Chloride Carbon Dioxide Anion Gap BUN Creatinine Estim Creat Clear Calc Estimated GFR Random Glucose Lactic Acid Calcium Iron TIBC % Saturation Unsat Iron Binding Ferritin Total Bilirubin Direct Bilirubin AST ALT Alkaline Phosphatase Troponin I High Sens 9.2 B-Natriuretic Peptide Total Protein Albumin Lipase Vitamin B12 Folate Urine Color Urine Appearance Urine pH Ur Specific Jay Urine Protein Urine Glucose (UA) Urine Ketones Urine Blood Urine Nitrite Ur Leukocyte Esterase Influenza Type A (PCR) Influenza Type B (PCR) RSV RNA Qual (PCR) SARS-CoV-2 RNA (RT-PCR) 06/05/22 06/05/22 06/05/22 00:21 00:21 00:21 WBC RBC Hgb Hct MCV MCH MCHC RDW Plt Count MPV Immature Gran % (Auto) Neut % (Auto) Lymph % (Auto) [place] % (Auto) Eos % (Auto) Baso % (Auto) Lymph # (Auto) [place] # (Auto) Eos # (Auto) Baso # (Auto) Abs Immat Gran (auto) Absolute Neuts (auto) Absolute Nucleated RBC Nucleated RBC % (auto) Smear Tech's Comments PT INR APTT D-Dimer High Sensitivty Sodium 134 L Potassium 4.6 Chloride 99 Carbon Dioxide 25 Anion Gap 15 BUN 33 H Creatinine 0.73 Estim Creat Clear Calc 93.1 Estimated GFR > 60 Random Glucose 173 H Lactic Acid Calcium 7.9 L D Iron TIBC % Saturation Unsat Iron Binding Ferritin Total Bilirubin 0.5 Direct Bilirubin 0.3 AST 39 H D ALT 41 H Alkaline Phosphatase 158 H D Troponin I High Sens B-Natriuretic Peptide 19 Total Protein 5.4 L D Albumin 2.9 L D Lipase 10 Vitamin B12 Folate Urine Color Urine Appearance Urine pH Ur Specific Jay Urine Protein Urine Glucose (UA) Urine Ketones Urine Blood Urine Nitrite Ur Leukocyte Esterase Influenza Type A (PCR) NEGATIVE Influenza Type B (PCR) NEGATIVE RSV RNA Qual (PCR) NEGATIVE SARS-CoV-2 RNA (RT-PCR) NEGATIVE 06/05/22 06/05/22 06/05/22 01:04 04:19 06:05 WBC 12.2 H RBC 2.85 L Hgb 8.3 L Hct 25.3 L MCV 88.8 MCH 29.1 MCHC 32.8 RDW 14.8 Plt Count 365 MPV 9.2 L Immature Gran % (Auto) 0.2 Neut % (Auto) 91.4 H Lymph % (Auto) 2.0 L [place] % (Auto) 6.2 Eos % (Auto) 0.0 Baso % (Auto) 0.2 Lymph # (Auto) 0.2 L [place] # (Auto) 0.8 Eos # (Auto) 0.0 Baso # (Auto) 0.0 Abs Immat Gran (auto) 0.03 Absolute Neuts (auto) 11.1 H Absolute Nucleated RBC 0.000 Nucleated RBC % (auto) 0.0 Smear Tech's Comments PT INR APTT D-Dimer High Sensitivty Sodium Potassium Chloride Carbon Dioxide Anion Gap BUN Creatinine Estim Creat Clear Calc Estimated GFR Random Glucose Lactic Acid 1.8 Calcium Iron TIBC % Saturation Unsat Iron Binding Ferritin Total Bilirubin Direct Bilirubin AST ALT Alkaline Phosphatase Troponin I High Sens B-Natriuretic Peptide Total Protein Albumin Lipase Vitamin B12 Folate Urine Color Yellow Urine Appearance Cloudy Urine pH 7.0 Ur Specific Jay 1.020 Urine Protein Trace Urine Glucose (UA) Negative Urine Ketones Negative Urine Blood Negative Urine Nitrite Negative Ur Leukocyte Esterase Negative Influenza Type A (PCR) Influenza Type B (PCR) RSV RNA Qual (PCR) SARS-CoV-2 RNA (RT-PCR) 06/05/22 06/05/22 06:05 06:05 WBC RBC Hgb Hct MCV MCH MCHC RDW Plt Count MPV Immature Gran % (Auto) Neut % (Auto) Lymph % (Auto) [place] % (Auto) Eos % (Auto) Baso % (Auto) Lymph # (Auto) [place] # (Auto) Eos # (Auto) Baso # (Auto) Abs Immat Gran (auto) Absolute Neuts (auto) Absolute Nucleated RBC Nucleated RBC % (auto) Smear Tech's Comments PT INR APTT D-Dimer High Sensitivty Sodium 135 Potassium 4.6 Chloride 102 Carbon Dioxide 25 Anion Gap 13 BUN 25 H Creatinine 0.66 Estim Creat Clear Calc 103.0 Estimated GFR > 60 Random Glucose 130 H Lactic Acid Calcium 7.7 L Iron 11 L TIBC 169 L % Saturation 7 L Unsat Iron Binding 158 Ferritin 1173 H Total Bilirubin Direct Bilirubin AST ALT Alkaline Phosphatase Troponin I High Sens B-Natriuretic Peptide Total Protein Albumin Lipase Vitamin B12 753 Folate 7.8 Urine Color Urine Appearance Urine pH Ur Specific Jay Urine Protein Urine Glucose (UA) Urine Ketones Urine Blood Urine Nitrite Ur Leukocyte Esterase Influenza Type A (PCR) Influenza Type B (PCR) RSV RNA Qual (PCR) SARS-CoV-2 RNA (RT-PCR) Imaging Radiologist's impression: Impressions Chest X-Ray 06/04/22 23:58 IMPRESSION: Lung opacities appear minimally improved when compared to prior. Head CT 06/05/22 00:02 IMPRESSION: No acute intracranial abnormality including hemorrhage, mass effect, hydrocephalus, or acute territorial edematous infarction. Chest CTA 06/05/22 08:15 IMPRESSION: No evidence of PE. No evidence aortic dissection or aneurysm. Multifocal pulmonary nodules of various sizes slightly increased since previous exam 05/16/2022. More interstitial reticular nodular changes are seen in both lower lobes, right middle lobe and lingula likely lymphatic involvement. There is bilateral small pleural effusions. Abnormal mediastinal matted lymphadenopathy. Heterogeneous liver could be secondary to differential enhancement pattern of the spleen. VTE: negative Assessment and Plan (1) Syncope and collapse: Status: Acute Plan 62-year-old gentleman who has metastatic throat cancer presenting with syncope a nd aspiration pneumonia. He has been started on antibiotics. Syncope is likely due to dehydration and vasovagal mechanism. Physical examination is normal. He does not have pulmonary embolism. Recommend echo to assess LV for any structural issues but I think this is likely a vasovagal situation. Can be monitored on telemetry while he is inpatient. Gentle hydration. Thank you for allowing me to participate in the care of your patient. Please feel free to contact me if you have any questions. Procedures Date of Service Date of Service: 06/05/22
--- NOTE | 2022-06-05 14:53 | P.EN_ITS ---
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 He describes having received chemotherapy about two weeks ago, but now with plans to begin a new treatment study with ? of Immunotherapy at [facility]. He was admitted here with syncope and is being treated for dehydration/pneumonia. He gives a hx of a single episode of painless rectal bleeding described as a clot about 2 days ago at home while in bed. He denies any signs of bleeding prior to that nor since then. He describes a negative colonoscopy at age 51. He denies any other particular significant GI sx. He does have some reflux but takes famotidine. He does have anemia with low Iron sat, although with a very high ferritin. He is on chronic Eliquis for a hx of DVT. He also has minimally elevated LFT's but his CT of the liver on admission was nonrevealing, and he denies EtOH or abdominal pain. Diff dx: In regard to the rectal bleeding this most likely reflects a perianal source such as an internal hemorrhoid, although I advised him it could less likely represent a polyp or neoplasm. The slight elevations of the LFTS are very nonspecific and I don't think this represents any significant process either. Rec: At this point I would not recommend any further GI w/u as he is obviously not a candidate for a colonoscopy and is not having any significant bleeding. I suspect his anemia is not solely related to chronic GI blood loss. I don't see any contraindication to resuming his Eliquis unless further significant bleeding ensues. If he does have further significant lower GI bleeding bleeding please contact me..................could consider a nuclear med bleeding scan. I don't think the elevated LFT's need any particular w/u at this time given the negative CT and his clinical history. I discussed all of this in detail with the patient and he is comfortable with this plan. Thanks
[2022-06-05] MEDS: Gabapentin 100 MG CAPSULE 200 MG G-TUBE (21:14)
[2022-06-06] VITALS (12 sets, daily range): BP systolic 112–133; BP diastolic 71–82; PULSE 78–101; RESP 15–24; TEMP 36.1–37; O2SAT 94–97
[2022-06-06] MEDS: Lactated Ringers 1,000 ML 100 ML IVCONT ×3 (00:03→23:49)
[2022-06-06] MEDS: Ampicillin Sodium/Sulbactam Na 3 GM in 0.9 % Sodium Chloride 100 ML IV ×3 (02:21→18:05)
--- NOTE | 2022-06-06 04:03 | CONS_ITS ---
DATE OF SERVICE: 06/05/2022 REASON FOR CONSULTATION: Rectal bleeding and elevated LFTs. HISTORY OF PRESENT ILLNESS: The patient is a 62-year-old male with a pertinent history of squamous cell cancer of the tonsil that has metastasized to his lungs. Initial diagnosis was about 2 years ago. He underwent initial chemotherapy and radiation treatments at [facility], but is now being followed at [facility]. He describes a course of chemotherapy as recently as about 2 weeks ago in [place], but reports that he is now about to enter a trial at [facility] for what sounds like immunotherapy. He describes that he was scheduled for liver biopsy this week, but it was canceled by [facility]. The patient was admitted here from the ER into the hospital for a syncopal episode, which was felt to be related to dehydration, although he is being treated for pneumonia. Prior to admission, he describes a single episode of a small amount of rectal bleeding while lying in bed. He describes this as a small clot. He denies any signs of bleeding prior to that, nor since then. His bowel movements have been somewhat soft and irregular as he is now only on G-tubes. However, he denies any melena, nor any other episodes of hematochezia. He denies any rectal pain or abdominal pain in association with the episode of hematochezia 2 days ago. He does describe some heartburn, for which he takes famotidine. He denies any vomiting. He has had the G-tube placed about a month ago. He has a great deal of difficulty swallowing most things. He denies any signs of jaundice. He does describe a negative colonoscopy about 10 years ago. He denies any known family history of GI malignancy. He denies any history of liver disease in himself nor in family members. He does not use any alcohol. He has not noticed any increasing abdominal girth. CURRENT MEDICATIONS: At home included albuterol inhaler p.r.n., Eliquis, famotidine, gabapentin, Atrovent, and levothyroxine. His medications here include albuterol inhaler p.r.n., albuterol updraft p.r.n., Unasyn, Eliquis, although that is on hold, Colace, Pepcid, gabapentin, levothyroxine, Zofran, Paxil. PAST MEDICAL HISTORY: Squamous cell cancer of the tonsil, metastatic to lung. He had been very healthy before this and denies any prior history of heart disease, diabetes, lung disease, nor kidney disease. PAST SURGICAL HISTORY: Include bilateral hernia surgery, ankle surgery, and recent G-tube placement. He had a lymph node biopsy at the time of diagnosis of his squamous cell cancer of the tonsil. SOCIAL HISTORY: He denies any history of smoking or significant alcohol use. 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 REVIEW OF SYSTEMS: CONSTITUTIONAL: He has been feeling weak in general. CHEST: Denies any hemoptysis. CARDIAC: No chest pain. GI: As above. FAMILY HISTORY: Negative for GI malignancy. PHYSICAL EXAMINATION: GENERAL: The patient is a pleasant, alert, chronically ill-appearing male. He is in no distress. SKIN: Warm and dry. HEENT: Anicteric sclerae. CARDIAC: Normal S1, S2. ABDOMEN: Soft, nondistended, nontender. EXTREMITIES: Without edema. LABORATORY DATA: He did have a CT angiogram on admission, it was negative for pulmonary embolus and did not show any sign of upper abdominal disease and specifically the liver appeared normal. He does have multiple lung lesions consistent with his known metastatic disease. White blood cell count 12.2, hemoglobin 8.3 this morning compared to 9.2 on admission to the ER. Hemoglobin was 12.9 back in April. White blood cell count 12.2, platelets 265,000, MCV 89. PT 14.7, INR 1.3. Normal electrolytes. BUN 25, creatinine 0.7. Iron 11, iron saturation 7%, ferritin 1173. Total bilirubin 0.5, AST 39, ALT 41, alkaline phosphatase 158, albumin 2.9, B12 of 753, and folate 7.8. IMPRESSION: In regard to the patient's rectal bleeding, the single small episode does not sound clinically significant. I did review with the patient this most likely represents a perianal source such as an internal hemorrhoid. I doubt this represents anything worse such as GI neoplasm or significant polyp. However, I did advise the patient that these are certainly possibilities as well since his last colonoscopy was quite sometime ago. Nonetheless, I would not recommend colonoscopy at this time given his overall condition and the clinical history. Certainly, if he does develop significant bleeding, we could consider other workup including a nuclear medicine bleeding scan and even colonoscopy if the bleeding persists and is clinically significant. However at this point, I do not think he is a good candidate for colonoscopy. I would continue to follow the hemoglobin. His anemia seems to be multifactorial given the low iron saturation, but very high ferritin and his ongoing illness with metastatic cancer, for which he is still receiving treatment. I would start a PPI rather than H2 curtis given the history of reflux and anemia just to treat any component of significant esophagitis. I do not see any contraindication to continuing Eliquis if need be, unless he develops any increasing bleeding. In regard to the slightly elevated LFTs, I do not think those are clinically significant either, particularly given the negative CT scan and the clinical history. I do not see any signs of chronic liver disease on this exam. I do not see any particular medications that would be of concern either in regard to liver disease. I would simply continue to follow those as well. This has all been discussed in detail with the patient and he is comfortable with this plan. MD JANETTE Rivers/MARY / [id number] MTDD
--- NOTE | 2022-06-06 05:23 | PC.NURSE ---
In preparation for report RN to bedside to verify pt's tube feedings after order reviewed. RN was able to confirm the pt's tube feeding was hung, tubing primed, ran through the pump and connected to the pt however the feeding was not ran and the bottle containing the feeding appears to be full. Pt reports feeding was hung at 1000 /8. RN could not find documentation of the feeding, discussed case with hris manager Karen and WAGNER Larson for back up and to ensure that something was not missed. All three parties were to bedside and could identify that the pump read Feeding Complete with 80mls fed through. This RN and WAGNER Larson programmed pump per tube feeding order starting the feeding at 20ml/hr at 0510.
[2022-06-06] MEDS: Ipratropium Bromide 1 PUFF/17 MCG INHALER 2 PUFF INHALE ×3 (06:21→17:18)
[2022-06-06] MEDS: Levothyroxine Sodium 112 MCG TABLET G-TUBE (06:48)
[2022-06-06 08:21] LABS: Hemoglobin 8.8 g/dl (14.0-18.0); Mean Corpuscular HGB Conc 32.6 g/dl (31.0-36.0); Mean Corpuscular Hemoglobin 28.7 pg (27.0-33.0); Mean Corpuscular Volume 87.9 fL (80.0-98.0); Mean Platelet Volume 9.4 fL (9.4-12.4); Platelet Count 403 X10*3/uL (160-400); Red Blood Count 3.07 X10*6/uL (4.60-5.80); Red Cell Distribution Width 14.6 % (11.0-16.0); White Blood Count 8.6 X10*3/uL (4.8-10.8)
[2022-06-06 08:52] LABS: Alanine Aminotransferase 41 U/L (0-40); Albumin Level 2.8 g/dL (3.5-5.0); Alkaline Phosphatase 128 U/L (39-117); Anion Gap 15 (12-20); Aspartate Amino Transferase 27 U/L (5-37); Bilirubin Direct 0.3 mg/dL (0.0-0.5); Bilirubin Total 0.5 mg/dL (0.0-1.0); Blood Urea Nitrogen 14 mg/dL (9-16); Calcium 8.4 mg/dL (8.4-10.2); Carbon Dioxide 28 mmol/L (22-29); Chloride 97 mmol/L (96-108); Creatinine Clr Calc Pharmacy 113.3; Estimated Glomerular Filt Rate > 60; Glucose Random 98 mg/dL (60-115); Potassium 4.7 mmol/L (3.3-5.1); Sodium 135 mmol/L (135-145); Total Protein 5.1 g/dL (6.5-8.0)
[2022-06-06 09:38] LABS: Magnesium 1.6 mg/dL (1.6-2.6)
[2022-06-06] MEDS: 0.9 % Sodium Chloride Flush 3 ML SYRINGE IVFLUSH (09:53)
[2022-06-06] MEDS: Magnesium Sulfate/H2O 2 GM/50 ML PIGGYBACK IV (09:53)
[2022-06-06] MEDS: PARoxetine HCL 10 MG TABLET G-TUBE (09:53)
[2022-06-06] MEDS: Apixaban 5 MG TABLET G-TUBE ×2 (09:53→19:31)
[2022-06-06] MEDS: Metoprolol Tartrate 12.5 MG HALFTAB G-TUBE (09:54)
--- NOTE | 2022-06-06 12:59 | P.PNIM_ITS ---
Subjective Subjective Date of Service: 06/06/22 Interval History: Seen and examined this morning Follow-up for aspiration pneumonia Having multiple episodes of nonsustained ventricular tachycardia overnight and this morning, patient does report intermittent palpitations. Denies chest pain Has chronic SOB from baseline. with phlegm difficult to bring up Review of Systems Review of Systems: Yes all other systems are reviewed and are negative Constitutional Constitutional: Denies chills and Denies fever(s) ENT Ears, Nose, Mouth, and Throat: Denies dizziness Cardiovascular Cardiovascular: Denies chest pain, Reports palpitations and Reports dyspnea Respiratory Respiratory: Reports cough and Reports dyspnea Gastrointestinal Gastrointestinal: Denies abdominal pain, Denies nausea and Denies vomiting Neurologic Neurologic: Denies dizziness Endocrine Endocrine: Reports palpitations Physical Exam Vital Signs: Vital Signs: Last Vital Signs Temp 98.6 F 06/06/22 11:38 Pulse 82 06/06/22 12:00 Resp 17 06/06/22 12:00 BP 112/72 06/06/22 11:38 Pulse Ox 95 06/06/22 11:38 O2 Del Method 06/06/22 11:38 O2 Flow Rate 2 06/06/22 11:38 Oxygen Flow Rate 15 06/05/22 00:00 BMI result Body Mass Index 18.5 Const: Other: chronically ill appearing General: comfortable and no acute distress Nutritional Appearance: cachectic and thin Orientation/consciousness: patient oriented x3 Resp: Other: diminished breath sounds; right basilar rales Effort & Inspection: normal respiratory effort and able to speak in complete sentences Cardio: Rate: regular rate Heart sounds: S1 normal heart sound present and S2 normal heart sound present GI: Other: gtube present Inspection: No distended Palpation (GI): Soft to palpation and nontender Neuro: Other: grossly nonfocal General: patient oriented x3 Extrem: General: Yes no pedal edema Objective Data Active Medications Acetaminophen (Acetaminophen 325 Mg Tablet) 650 mg G-TUBE Q6H PRN PRN Reason: Pain, Mild (Pain Scale 1-3) Albuterol Sulfate (Albuterol Sulfate 90 Mcg 8 Gm Inhaler) 2 puff INHALE Q6H PRN PRN Reason: wheezing Albuterol/Ipratropium (Albuterol/Iprat 2.5/0.5mg 3 Ml Ampul.Neb) 3 ml INHALE RQ4H PRN PRN Reason: Shortness of Breath/Wheezing Apixaban (Apixaban 5 Mg Tablet) 5 mg G-TUBE BID [facility] Last Admin: 06/06/22 09:53 Dose: 5 mg Documented By: RUBY Docusate Sodium (Docusate Sodium 100 Mg/10 Ml Liquid) 100 mg G-TUBE DAILY PRN PRN Reason: Constipation Gabapentin (Gabapentin 100 Mg Capsule) 200 mg G-TUBE BEDTIME [facility] Last Admin: 06/05/22 21:14 Dose: 200 mg Documented By: CRYSTAL Ampicillin Sodium/Sulbactam (Sodium 3 gm/ Sodium Chloride) 100 mls @ 200 mls/hr IV Q8H [facility] Last Infusion: 06/06/22 12:45 Dose: 0 mls/hr Documented By: RUBY Lactated Ringer's (Lr) 1,000 mls @ 100 mls/hr IVCONT .Q10H [facility] Last Admin: 06/06/22 11:47 Dose: 100 mls/hr Documented By: RUBY Ipratropium [place] (Ipratropium [place] 1 Puff/17 Mcg Inhaler) 2 puff INHALE RQ6H [facility] Last Admin: 06/06/22 11:58 Dose: 2 puff Documented By: PATT Levothyroxine Sodium (Levothyroxine Sodium 112 Mcg Tablet) 112 mcg G-TUBE DAILY@0630 [facility] Last Admin: 06/06/22 06:48 Dose: 112 mcg Documented By: IMTIAZ Metoprolol Tartrate (Metoprolol Tartrate 12.5 Mg Halftab) 12.5 mg G-TUBE BID [facility]; Protocol Last Admin: 06/06/22 09:54 Dose: 12.5 mg Documented By: RUBY Omeprazole (Omeprazole 20 Mg/10 Ml Susp.Recon) 20 mg G-TUBE DAILY@0630 [facility] Last Admin: 06/06/22 06:54 Dose: Not Given Documented By: IMTIAZ Non-Admin Reason: Med Not Available Ondansetron HCl (Ondansetron Hcl 4 Mg/2 Ml Vial) 4 mg IVPUSH Q8H PRN PRN Reason: Nausea and Vomiting Paroxetine HCl (Paroxetine Hcl 10 Mg Tablet) 10 mg G-TUBE DAILY [facility] Last Admin: 06/06/22 09:53 Dose: 10 mg Documented By: RUBY Pharmacy Consult (Consult Rx Perform Med Rec) 1 each MISCELLANE ONCE PRN PRN Reason: Consult order Sodium Chloride (0.9 % Sodium Chloride Flush 3 Ml Syringe) 3 ml IVFLUSH QSHIFT [facility] Last Admin: 06/06/22 09:53 Dose: 3 ml Documented By: RUBY Labs CBC & Chem 7: 06/06/22 07:47 06/06/22 07:47 Labs: Laboratory Results - last 24 hr 06/06/22 06/06/22 07:47 07:47 MCV 87.9 MCH 28.7 MCHC 32.6 RDW 14.6 Plt Count 403 H MPV 9.4 Absolute Nucleated RBC 0.000 Nucleated RBC % (auto) 0.0 Anion Gap 15 Estim Creat Clear Calc 113.3 Estimated GFR > 60 Random Glucose 98 Calcium 8.4 D Magnesium 1.6 Total Bilirubin 0.5 Direct Bilirubin 0.3 AST 27 ALT 41 H Alkaline Phosphatase 128 H Total Protein 5.1 L Albumin 2.8 L Microbiology Microbiology Results: Microbiology 06/05/22 01:04 Blood Culture - Preliminary Blood - Venous No growth after 24 hours. 06/05/22 01:04 Blood Culture - Preliminary Blood - Venous No growth after 24 hours. 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 presents to the hospital with syncopal episode NSVT Multiple episodes overnight and this morning -given magnesium empirically -started low-dose beta-curtis -cardiology following -goal to keep potassium >4 and mag ?2 syncope orthostatic BP is were negative but patient has significant change in heart rate seen by cardiology - thinks syncope was likely r/t dehydration/vasovagal echo showing new wall motion abnormality when compared 2019, will discuss with Cardiology - IV fluids - tele monitoring - cardiology consult pending sepsis secondary to aspiration pneumonia fever 101.8, tachycardia and leukocytosis initially. Tachycardia resolved and leukocytosis resolved, has been afebrile lactic acid wnl, no severe features -continue IV unasyn -follow blood cultures GI bleeding Eliquis has been on hold for 3 days for liver biopsy that was planned for today at [facility] ([place], [place]) (was cancelled by facility; ?pt states biopsy was to be obtained before a new trial of medication for his cancer) iron studies c/w iron deficiency and anemia of inflammation Seen by GI-no contraindication to continuing Eliquis H/H stable ferritin high, will hold off on iron supplementation at this time -continue Eliquis acute on chronic anemia r/t iron deficiency and anemia of chronic disease/inflammation H/H stable right lower extremity DVT diagnosed approximately 6 weeks ago -Continue Eliquis mild elevation in LFTs LFTs stable, no further workup required at this time metastatic SCC 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 Reticular nodular changes seen in both lower lobes likely lymphatic involvement follows with [facility] ([place], [place]) - outpatient follow up Severe protein-calorie malnutrition seen by nutrition continue tube feedings - will change to continuous feedings during hospitalization, may benefit from continuing upon discharge to lower risk of aspiration per nutrition hypothyroidism continu synthroid DVT prophylaxis: Lali attending - dr. cunningham patient requires ongoing inpatient hospitalization due to workup for syncope, anemia, GI bleeding and treatment for aspiration pneumonia Quality Stroke Does the patient have a stroke diagnosis?: No VTE Prior VTE?: No VTE Risk Level:: Medical - moderate - high VTE Device Contraindication: Treatment Not Indicated VTE Drug Contraindication: N/A - Med Ordered
--- NOTE | 2022-06-06 15:58 | MHC.CLN ---
F/U TUBE FEED ORDER PROMOTE AT MAX GOAL RATE 75ML/HR WITH 240ML FREE WATER FLUSHES Q 8 HOURS TO PROVIDE 1800KCALS (29KCALS/KG), 112.5G PROTEIN (1.8G/KG), 2230ML TOTAL WATER FROM FORMULA AND FLUSHES (36ML/KG). AT TIME OF VISIT, TF RUNNING AT 30 ML PER HOUR. CONTINUE TO ADVANCE TO MAX GOAL RATE TOLERATED. MONITOR TOLERANCE, RESIDUALS AND LYTES.
--- NOTE | 2022-06-06 16:31 | PM.PNCARD ---
Subjective Subjective Date of Service: 06/06/22 Interval history: Seen and examined at bedside. Denying any CP or SOB. Had some palpitations. Tele has shown multiple PVCs and NSVT. Polymorphic appearing. Receiving magnesium. Physical Exam Vital Signs: Last Vital Signs Temp 98.6 F 06/06/22 11:38 Pulse 82 06/06/22 12:00 Resp 17 06/06/22 12:00 BP 112/72 06/06/22 11:38 Pulse Ox 95 06/06/22 11:38 O2 Del Method 06/06/22 11:38 O2 Flow Rate 2 06/06/22 11:38 Oxygen Flow Rate 15 06/05/22 00:00 BMI result Body Mass Index 18.5 GENERAL APPEARANCE: Cachectic. Hoarseness of voice. NECK: no carotid bruit, no jugular venous distention. SKIN: no suspicious lesions, warm and dry. HEART: no murmurs, regular rate and rhythm. LUNGS: Crackles both bases. ABDOMEN: soft, nontender. EXTREMITIES: no edema. PERIPHERAL PULSES: equal. NEUROLOGIC: No gross deficits, AAO X 3 Objective Labs and Meds Result diagrams: 06/06/22 07:47 06/06/22 07:47 Lab results: Laboratory Results - last 24 hr 06/06/22 06/06/22 07:47 07:47 WBC 8.6 RBC 3.07 L Hgb 8.8 L Hct 27.0 L MCV 87.9 MCH 28.7 MCHC 32.6 RDW 14.6 Plt Count 403 H MPV 9.4 Absolute Nucleated RBC 0.000 Nucleated RBC % (auto) 0.0 Sodium 135 Potassium 4.7 Chloride 97 Carbon Dioxide 28 Anion Gap 15 BUN 14 Creatinine 0.60 Estim Creat Clear Calc 113.3 Estimated GFR > 60 Random Glucose 98 Calcium 8.4 D Magnesium 1.6 Total Bilirubin 0.5 Direct Bilirubin 0.3 AST 27 ALT 41 H Alkaline Phosphatase 128 H Total Protein 5.1 L Albumin 2.8 L Progress Note: A&P Assessment and plan (1) PVC (premature ventricular contraction): Status: Acute (2) Syncope and collapse: Status: Acute Plan 62 male with metastatic throat cancer presenting for syncope and aspiration. Story consistent with vasovagal. Echo has shown EF 50-55% and basal inferior AK. Has polymorphic appearing PVCs. Check EKG to document QTc. Monitor K and Mag. Metoprolol 25 BID and titrate based on BP and HR. Time Spent With Patient Time: Total time spent is greater than 50% in coordination of care (as documented) at patient's floor/unit and/or counseling patient: Progress Note: Quality Stroke Does the patient have a stroke diagnosis?: No Procedures Date of Service Date of Service: 06/06/22
[2022-06-06] MEDS: Gabapentin 100 MG CAPSULE 200 MG G-TUBE (19:30)
[2022-06-06] MEDS: Metoprolol Tartrate 25 MG TABLET G-TUBE (19:31)
[2022-06-07] VITALS (7 sets, daily range): BP systolic 114–133; BP diastolic 66–78; PULSE 70–81; RESP 17–19; TEMP 36.2–37.2; O2SAT 93–98
--- NOTE | 2022-06-07 | ECG_ITS ---
Test Reason : repeat, eval qtc Blood Pressure : / mmHG Vent. Rate : 072 BPM Atrial Rate : 072 BPM P-R Int : 132 ms QRS Dur : 098 ms QT Int : 372 ms P-R-T Axes : 011 033 041 degrees QTc Int : 407 ms Normal sinus rhythm Normal ECG When compared with ECG of 04-JUN-2022 22:55, Premature ventricular complexes are no longer Present Vent. rate has decreased BY 47 BPM Nonspecific T wave abnormality no longer evident in Inferior leads Nonspecific T wave abnormality no longer evident in Lateral leads Referred By: Veronica Jaimes Electronically Signed By:ANIL JEROME
[2022-06-07] MEDS: Ampicillin Sodium/Sulbactam Na 3 GM in 0.9 % Sodium Chloride 100 ML IV ×3 (02:24→17:41)
[2022-06-07] MEDS: Levothyroxine Sodium 112 MCG TABLET G-TUBE (06:28)
[2022-06-07] MEDS: Metoprolol Tartrate 25 MG TABLET G-TUBE ×2 (07:38→19:46)
[2022-06-07] MEDS: Apixaban 5 MG TABLET G-TUBE ×2 (07:38→19:45)
[2022-06-07] MEDS: PARoxetine HCL 10 MG TABLET G-TUBE (07:39)
[2022-06-07 07:45] LABS: Magnesium 1.8 mg/dL (1.6-2.6)
--- NOTE | 2022-06-07 09:43 | MHC.CM.PN ---
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
[2022-06-07] MEDS: Ipratropium Bromide 1 PUFF/17 MCG INHALER 2 PUFF INHALE ×2 (11:43→17:50)
[2022-06-07] MEDS: Magnesium Sulfate/H2O 2 GM/50 ML PIGGYBACK IV (12:15)
[2022-06-07] MEDS: Amiodarone HCL 200 MG TABLET 400 MG PO (12:16)
--- NOTE | 2022-06-07 14:08 | HO.PM.IMPN ---
Subjective Subjective Date of Service: 06/07/22 Interval History: seen and examined this morning follow up for syncope, NSVT, pneumonia breathing improving still having frequent episodes of NSVT, pt asymptomatic - no chest pain, shortness of breath or palpitations having easier time bringing up phlegm today no fever, chills Review of Systems Review of Systems: Yes all other systems are reviewed and are negative Constitutional Constitutional: Denies chills and Denies fever(s) Cardiovascular Cardiovascular: Denies chest pain, Denies palpitations and Denies dyspnea Respiratory Respiratory: Denies cough and Denies dyspnea Gastrointestinal Gastrointestinal: Denies abdominal pain, Denies nausea and Denies vomiting Endocrine Endocrine: Denies palpitations Physical Exam Vital Signs: Vital Signs: Last Vital Signs Temp 99.0 F 06/07/22 11:27 Pulse 74 06/07/22 11:46 Resp 17 06/07/22 11:46 BP 114/72 06/07/22 11:27 Pulse Ox 96 06/07/22 11:27 O2 Del Method 06/07/22 11:27 O2 Flow Rate 2 06/07/22 03:24 Oxygen Flow Rate 15 06/05/22 00:00 BMI result Body Mass Index 18.5 Const: Other: chronically ill appearing General: comfortable and no acute distress Nutritional Appearance: cachectic and thin Orientation/consciousness: patient oriented x3 Chest: Other: port - right chest wall Resp: Other: diminished breath sounds; right basilar rales Effort & Inspection: normal respiratory effort and able to speak in complete sentences Cardio: Rate: regular rate Heart sounds: S1 normal heart sound present and S2 normal heart sound present GI: Other: gtube present Inspection: No distended Palpation (GI): Soft to palpation and nontender Neuro: Other: grossly nonfocal General: patient oriented x3 Extrem: General: Yes no pedal edema Objective Data Active Medications Acetaminophen (Acetaminophen 325 Mg Tablet) 650 mg G-TUBE Q6H PRN PRN Reason: Pain, Mild (Pain Scale 1-3) Albuterol Sulfate (Albuterol Sulfate 90 Mcg 8 Gm Inhaler) 2 puff INHALE Q6H PRN PRN Reason: wheezing Albuterol/Ipratropium (Albuterol/Iprat 2.5/0.5mg 3 Ml Ampul.Neb) 3 ml INHALE RQ4H PRN PRN Reason: Shortness of Breath/Wheezing Amiodarone HCl (Amiodarone Hcl 200 Mg Tablet) 400 mg PO DAILY [facility] Last Admin: 06/07/22 12:16 Dose: 400 mg Documented By: CHRISS Apixaban (Apixaban 5 Mg Tablet) 5 mg G-TUBE BID [facility] Last Admin: 06/07/22 07:38 Dose: 5 mg Documented By: CHRISS Docusate Sodium (Docusate Sodium 100 Mg/10 Ml Liquid) 100 mg G-TUBE DAILY PRN PRN Reason: Constipation Gabapentin (Gabapentin 100 Mg Capsule) 200 mg G-TUBE BEDTIME [facility] Last Admin: 06/06/22 19:30 Dose: 200 mg Documented By: GRACY Ampicillin Sodium/Sulbactam (Sodium 3 gm/ Sodium Chloride) 100 mls @ 200 mls/hr IV Q8H [facility] Last Infusion: 06/07/22 10:45 Dose: 0 mls/hr Documented By: CHRISS Ipratropium [place] (Ipratropium [place] 1 Puff/17 Mcg Inhaler) 2 puff INHALE RQ6H [facility] Last Admin: 06/07/22 11:43 Dose: 2 puff Documented By: PATT Levothyroxine Sodium (Levothyroxine Sodium 112 Mcg Tablet) 112 mcg G-TUBE DAILY@0630 [facility] Last Admin: 06/07/22 06:28 Dose: 112 mcg Documented By: GRACY Metoprolol Tartrate (Metoprolol Tartrate 25 Mg Tablet) 25 mg G-TUBE BID [facility]; Protocol Last Admin: 06/07/22 07:38 Dose: 25 mg Documented By: CHRISS Omeprazole (Omeprazole 20 Mg/10 Ml Susp.Recon) 20 mg G-TUBE DAILY@0630 [facility] Last Admin: 06/07/22 06:28 Dose: 20 mg Documented By: GRACY Ondansetron HCl (Ondansetron Hcl 4 Mg/2 Ml Vial) 4 mg IVPUSH Q8H PRN PRN Reason: Nausea and Vomiting Paroxetine HCl (Paroxetine Hcl 10 Mg Tablet) 10 mg G-TUBE DAILY [facility] Last Admin: 06/07/22 07:39 Dose: 10 mg Documented By: CHRISS Pharmacy Consult (Consult Rx Perform Med Rec) 1 each MISCELLANE ONCE PRN PRN Reason: Consult order Sodium Chloride (0.9 % Sodium Chloride Flush 3 Ml Syringe) 3 ml IVFLUSH QSHIFT [facility] Last Admin: 06/07/22 08:08 Dose: Not Given Documented By: CHRISS Non-Admin Reason: IV Running Labs CBC & Chem 7: 06/06/22 07:47 06/06/22 07:47 Labs: Laboratory Results - last 24 hr 06/07/22 06:38 Magnesium 1.8 Microbiology Microbiology Results: Microbiology 06/05/22 01:04 Blood Culture - Preliminary Blood - Venous No growth after 48 hours. 06/05/22 01:04 Blood Culture - Preliminary Blood - Venous No growth after 48 hours. 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 presents to the hospital with syncopal episode NSVT continues to have episodes of NST -replace magnesium -continue beta-curtis -d/w cardiology, will start low dose amiodarone -goal to keep potassium >4 and mag ?2 syncope orthostatic BP is were negative but patient has significant change in heart rate seen by cardiology - thinks syncope was likely r/t dehydration/vasovagal echo showing new wall motion abnormality when compared 2019 - given other medical issues no plan to pursue further cardiac workup at this time s/p IV fluids - tele monitoring - seen by cardiology sepsis secondary to aspiration pneumonia fever 101.8, tachycardia and leukocytosis initially. Tachycardia resolved and leukocytosis resolved, has been afebrile lactic acid wnl, no severe features Blood cultures negative today -continue IV unasyn GI bleeding Eliquis has been on hold for 3 days for liver biopsy that was planned for today at [facility] (was cancelled by facility; ?pt states biopsy was to be obtained before a new trial of medication for his cancer) iron studies c/w iron deficiency and anemia of inflammation Seen by GI-no contraindication to continuing Eliquis H/H stable ferritin high, will hold off on iron supplementation at this time no further episodes of bleeding acute on chronic anemia r/t iron deficiency and anemia of chronic disease/inflammation H/H stable right lower extremity DVT diagnosed approximately 6 weeks ago -Continue Eliquis mild elevation in LFTs LFTs stable, no further workup required at this time metastatic SCC 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 Reticular nodular changes seen in both lower lobes likely lymphatic involvement follows with [facility] - outpatient follow up Severe protein-calorie malnutrition seen by nutrition continue tube feedings - will change to continuous feedings during hospitalization, may benefit from continuing upon discharge to lower risk of aspiration per nutrition hypothyroidism continu synthroid DVT prophylaxis: Lali attending - dr. naidu patient requires ongoing inpatient hospitalization due to workup for syncope, anemia, GI bleeding and treatment for aspiration pneumonia Quality Stroke Does the patient have a stroke diagnosis?: No VTE Prior VTE?: No VTE Risk Level:: Medical - moderate - high VTE Device Contraindication: Treatment Not Indicated VTE Drug Contraindication: N/A - Med Ordered
--- NOTE | 2022-06-07 18:11 | PC.NURSE ---
MAR reports 1023 dose of abx was infused but was not infused due to pump error. Fiona SEN made aware. Cont with next scheduled dose per orders.
[2022-06-07] MEDS: Gabapentin 100 MG CAPSULE 200 MG G-TUBE (19:44)
[2022-06-07] MEDS: 0.9 % Sodium Chloride Flush 3 ML SYRINGE IVFLUSH (22:34)
[2022-06-08] MEDS: Ampicillin Sodium/Sulbactam Na 3 GM in 0.9 % Sodium Chloride 100 ML IV ×2 (01:35→09:06)
[2022-06-08 03:13] VITALS: BP 119/68; PULSE 70; RESP 18; TEMP 36.6; O2SAT 95
[2022-06-08] MEDS: Levothyroxine Sodium 112 MCG TABLET G-TUBE (05:53)
[2022-06-08] MEDS: Ipratropium Bromide 1 PUFF/17 MCG INHALER 2 PUFF INHALE ×2 (05:53→11:26)
[2022-06-08 05:55] VITALS: PULSE 77; RESP 20; O2SAT 95
[2022-06-08 06:11] LABS: Anion Gap 13 (12-20); Blood Urea Nitrogen 17 mg/dL (9-16); Calcium 8.4 mg/dL (8.4-10.2); Carbon Dioxide 30 mmol/L (22-29); Chloride 97 mmol/L (96-108); Creatinine Clr Calc Pharmacy 101.5; Estimated Glomerular Filt Rate > 60; Glucose Random 116 mg/dL (60-115); Magnesium 1.9 mg/dL (1.6-2.6); Sodium 135 mmol/L (135-145)
[2022-06-08 07:34] VITALS: BP 126/75; PULSE 81; RESP 13; TEMP 36.5; O2SAT 93
[2022-06-08] MEDS: 0.9 % Sodium Chloride Flush 3 ML SYRINGE IVFLUSH (09:07)
[2022-06-08] MEDS: Metoprolol Tartrate 25 MG TABLET G-TUBE (09:14)
[2022-06-08] MEDS: Amiodarone HCL 200 MG TABLET 400 MG PO (09:14)
[2022-06-08] MEDS: Apixaban 5 MG TABLET G-TUBE (09:14)
[2022-06-08 11:16] VITALS: BP 117/72; PULSE 72; RESP 18; TEMP 37.5; O2SAT 94
--- NOTE | 2022-06-08 11:22 | PM.PNCARD ---
Subjective Subjective Date of Service: 06/08/22 Interval history: Feeling better. Telemetry stable. Physical Exam Vital Signs: Last Vital Signs Temp 99.5 F 06/08/22 11:16 Pulse 72 06/08/22 11:16 Resp 18 06/08/22 11:16 BP 117/72 06/08/22 11:16 Pulse Ox 94 06/08/22 11:16 O2 Del Method 06/08/22 11:16 O2 Flow Rate 2.0 06/08/22 07:34 Oxygen Flow Rate 15 06/05/22 00:00 BMI result Body Mass Index 18.5 GENERAL APPEARANCE: Cachectic. Hoarseness of voice. NECK: no carotid bruit, no jugular venous distention. SKIN: no suspicious lesions, warm and dry. HEART: no murmurs, regular rate and rhythm. LUNGS: Crackles both bases. ABDOMEN: soft, nontender. EXTREMITIES: no edema. PERIPHERAL PULSES: equal. NEUROLOGIC: No gross deficits, AAO X 3 Objective Labs and Meds Result diagrams: 06/06/22 07:47 06/08/22 05:05 Lab results: Laboratory Results - last 24 hr 06/08/22 05:05 Sodium 135 Potassium 5.0 Chloride 97 Carbon Dioxide 30 H Anion Gap 13 BUN 17 H Creatinine 0.67 Estim Creat Clear Calc 101.5 Estimated GFR > 60 Random Glucose 116 H Calcium 8.4 Magnesium 1.9 Progress Note: A&P Assessment and plan (1) NSVT (nonsustained ventricular tachycardia): Status: Acute (2) Dehydration: Status: Acute (3) Syncope and collapse: Status: Acute (4) PVC (premature ventricular contraction): Status: Acute Plan 62 male with metastatic throat cancer presenting for syncope and aspiration. Story consistent with vasovagal. Echo has shown EF 50-55% and basal inferior AK. Has polymorphic appearing PVCs. Magnesium repleted and he has been started on amiodarone 400 mg daily. Metoprolol 25 BID and titrate based on BP and HR. Continue amiodarone 400 mg daily x2 week and then can decrease it 200 mg daily. He should be sent home with magnesium oxide 400 mg daily. Thank you for allowing me to participate in the care of your patient. Please feel free to contact me if you have any questions. Time Spent With Patient Time: Total time spent is greater than 50% in coordination of care (as documented) at patient's floor/unit and/or counseling patient: Progress Note: Quality Stroke Does the patient have a stroke diagnosis?: No Procedures Date of Service Date of Service: 06/08/22
[2022-06-08 11:29] VITALS: PULSE 71; RESP 18; O2SAT 94
--- NOTE | 2022-06-08 12:06 | PM.DS ---
DS: Providers Provider Date of Service: 06/08/22 Date of admission: 06/07/22 16:33 Date of discharge: 06/08/22 Primary care physician: José Oneil MD Consults: 06/05/22 10:48 Consult to Gastroenterology Routine Consulting Provider: Adrian Patiño Reason for consultation: rectal bleeding; h/o DVT on Eliquis; abnormal LFTs Has provider been notified: No 06/05/22 11:57 Consult to Cardiology Routine Consulting Provider: Mik Mosqueda Reason for consultation: syncope Has provider been notified: No Attending physician on discharge: Ryan Orlando Discharging clinician: Veronica Jaimes DS: Diagnosis Discharge Diagnosis (1) NSVT (nonsustained ventricular tachycardia): Status: Acute (2) Dehydration: Status: Acute (3) Syncope and collapse: Status: Acute (4) PVC (premature ventricular contraction): Status: Acute (5) Aspiration pneumonia: Status: Acute (6) Sepsis: Status: Acute DS: Summary Hospital Course Hospital Course: From H&P on day of admission 62-year-old male with past medical history of 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 Patient reports that he syncopized at home in front of his , he is not sure how long it lasted but he woke up at home with no confusion, no head injury, no postictal symptoms, and no evidence of loss of bowel or bladder control.? Patient reports no previous similar episode.? He reports that he was feeling dizzy and lightheaded right before the fall, he reports no palpitations, no chest pain, no worsening shortness of breath although he has had chronic shortness of breath since the radiation to his neck, he has had a chronic cough that has not worsened, reports no fever but has chills, no chest pain, no abdominal pain nausea or vomiting, no diarrhea constipation, no urinary symptoms and no lower extremity edema.? Orthostatic vitals were positive for sinus tachycardia , but BP remained stable Other vitals on arrival does show tachycardia with no other significant abnormality Labs are significant for WBC count of 13.7, hemoglobin of 9.2, hematocrit 26.9, lactic acid of 1.8, AST of 39, ALT of 41, alk-phos of 158, UA negative, Chest x-ray shows lung opacities that were present previously but are not improved Patient does reports that he continues to aspirate in spite having a PEG tube in place.? Head CT negative, EKG reviewed by me showed sinus tachycardia with no significant ST T wave abnormalities indicative of ACS or arrhythmia Patient will be admitted for further evaluation syncope Patient was admitted after an episode of syncope. orthostatic BP is were negative but patient has significant change in heart rate. He seen by cardiology - thinks syncope was likely r/t dehydration/vasovagal. echo showing new wall motion abnormality when compared 2020 -? given other medical issues no plan to pursue further cardiac workup at this time. He was treated with IVF and had no further episodes of syncope. sepsis secondary to aspiration pneumonia fever 101.8, tachycardia and leukocytosis initially.? Tachycardia and leukocytosis resolved, has been afebrile. lactic acid wnl. Blood cultures have remained negative. He was treated with IV Unasyn and will be transitioned to oral Augmentin on discharge. Initially he was having trouble bringing up phlegm, but gradually this improved. He was weaned off supplemental oxygen. He continues to have some baseline shortness of breath but his breathing and cough have improved with treatment and he is eager to return home. During hospitalization patient was noted to numerous episodes of NSVT. He remained asymptomatic. He was treated with magnesium supplementation and started on low-dose beta-curtis. He continued to have episodes of an SVT and therefore cardiology recommended to start low-dose amiodarone. He will be discharged on 400 mg of amiodarone daily for the next 2 weeks followed by 200 mg daily thereafter. He is encouraged to follow with Cardiology as an outpatient. GI bleeding. patient reported one episode of rectal bleeding. His Eliquis was initially placed on hold. He was seen in consultation by Gastroenterology and given that his rectal bleeding was transient there is no contraindication to continuing Eliquis at this time. iron studies c/w iron deficiency and anemia of inflammation. He reports history of iron deficiency in the past. As ferritin high, will hold off on iron supplementation at this time. no further episodes of bleeding during admission. H/H has remained stable, outpatient follow-up recommended metastatic SCC of throat with mets to lungs. CTA showing multifocal pulmonary nodules of various sizes increased since April.? Reticular nodular changes seen in both lower lobes likely lymphatic involvement. follows with Argenis Mariola, he is planned to start new trial of drugs after recovery from pneumonia. continue outpatient follow up Severe protein-calorie malnutrition seen by nutrition. feedings changed to continuous feedings during hospitalization. Can discuss with [facility] nutrition team to consider changing to continuous feeds as outpatient to lower risk of aspiration Time Spent with Patient Time attestation: Total time spent providing and/or coordinating discharge services: Discharge coordination time: Greater than 30 minutes Quality: Safe Use of Opioids Does Pt have an Active Cancer Diagnosis on the Problem List?: No Quality: Stroke Does the patient have a stroke diagnosis?: No Physical Exam Vital Signs: Vital Signs: Last Vital Signs Temp 99.5 F 06/08/22 11:16 Pulse 71 06/08/22 11:29 Resp 18 06/08/22 11:29 BP 117/72 06/08/22 11:16 Pulse Ox 94 06/08/22 11:16 O2 Del Method 06/08/22 11:16 O2 Flow Rate 2.0 06/08/22 07:34 Oxygen Flow Rate 15 06/05/22 00:00 BMI result Body Mass Index 18.5 Const: Other: chronically ill appearing General: comfortable and no acute distress Nutritional Appearance: cachectic and thin Orientation/consciousness: patient oriented x3 Chest: Other: port - right chest wall Resp: Other: diminished breath sounds; right basilar rales Effort & Inspection: normal respiratory effort and able to speak in complete sentences Cardio: Rate: regular rate Heart sounds: S1 normal heart sound present and S2 normal heart sound present GI: Other: gtube present Inspection: No distended Palpation (GI): Soft to palpation and nontender Neuro: Other: grossly nonfocal General: patient oriented x3 Extrem: General: Yes no pedal edema DS: Data Data Completed and Pending Labs on day of discharge: Laboratory Results - last 24 hr 06/08/22 05:05 Sodium 135 Potassium 5.0 Chloride 97 Carbon Dioxide 30 H Anion Gap 13 BUN 17 H Creatinine 0.67 Estim Creat Clear Calc 101.5 Estimated GFR > 60 Random Glucose 116 H Calcium 8.4 Magnesium 1.9 Preliminary micro results at discharge 06/05/22 01:04 Blood Culture - Preliminary Blood - Venous No growth after 48 hours. 06/05/22 01:04 Blood Culture - Preliminary Blood - Venous No growth after [address] scan - chest: Radiologist's impression: ITS Impressions Chest X-Ray 06/04/22 23:58 IMPRESSION: Lung opacities appear minimally improved when compared to prior. Head CT 06/05/22 00:02 IMPRESSION: No acute intracranial abnormality including hemorrhage, mass effect, hydrocephalus, or acute territorial edematous infarction. Chest CTA 06/05/22 08:15 IMPRESSION: No evidence of PE. No evidence aortic dissection or aneurysm. Multifocal pulmonary nodules of various sizes slightly increased since previous exam 05/16/2022. More interstitial reticular nodular changes are seen in both lower lobes, right middle lobe and lingula likely lymphatic involvement. There is bilateral small pleural effusions. Abnormal mediastinal matted lymphadenopathy. Heterogeneous liver could be secondary to differential enhancement pattern of the spleen. VTE: negative ECHO Conclusions: - Normal left ventricular cavity size.? There is normal left ? ? ventricular wall thickness.? The left ventricular systolic ? ? ? function is low normal.? The visually estimated ejection fraction is between 50-55%. ? - The basal inferior segment is akinetic.? - Normal right ventricular cavity size and systolic function.?? Discharge Plan Discharge Patient Disposition: Home Health Service Discharge Diagnosis: Syncope NSVT Aspiration pneumonia Referrals: José Oneil MD [Primary Care Provider] - 1 Week Mik Mosqueda MD [Physician] - 1 Week Discharge Medications: New metoprolol tartrate 25 mg Tablet 25 mg G-tube BID 30 Days Qty: 60 0RF Protocol: Hold for SBP/HR < HOLD for SBP < : 90 HOLD for HR < : 60 amiodarone 200 mg Tablet 400 mg PO DAILY Qty: 44 0RF Rx Instructions: Take 400 mg daily for 2 weeks and then 200 mg daily Omeprazole Oral Susp [Prilosec Oral Susp] 20 mg G-tube DAILY@0630 30 Days Qty: 30 1RF amoxicillin-pot clavulanate [Augmentin] 500-125 mg tablet 1 tab PO BID 4 Days Qty: 8 0RF Continued gabapentin 100 mg capsule 2 cap PO BEDTIME albuterol sulfate 90 mcg/actuation HFA aerosol inhaler 2 puff inhalation Q6H PRN (Reason: wheezing) levothyroxine 112 mcg tablet 1 tab PO DAILY@0630 Atrovent HFA 17 mcg/actuation HFA aerosol inhaler 2 puff inhalation Q6H Eliquis 5 mg tablet 1 tab PO BID Discontinued famotidine 20 mg tablet 1 tab PO BID PRN (Reason: indigestion) Discharge Orders: Discharge Order (Routine); Ordered 06/08/22 Ordered By: Veronica Jaimes Activity on Discharge: As tolerated Stand Alone Forms: Patient Portal Discharge page Care Plan Goals: see below Health Concerns: Syncope NSVT Sepsis secondary to Pneumonia Anemia Plan of Treatment: You have been started on metoprolol and amiodorone for non-sustained ventricular tachycardia for amiodarone take 400 mg daily for two weeks and then decrease to 200 mg daily. Call to schedule follow-up appointment with the boiler setter for close monitoring For pneumonia, complete entire course of antibiotics Syncope was likely related to dehydration/vasovagal response Pepcid has been changed to omeprazole due to episode of rectal bleed tube feedings - you have been on continuous tube feedings in the hospital, follow up with nutrition team at [facility] to determine if continuous feeds at home would be beneficial Medications have been changed to be administered through feeding tube rather then by mouth Continue outpatient follow up at [facility] for treatment of underlying malignancy Abnormal Echo -outpatient follow up with cardiology Assessment: see discharge summary Discharge Date/Time: 06/08/22 13:48
--- NOTE | 2022-06-08 13:50 | W.MHC.F2F ---
Service Date Service Date: 06/08/22 Encounter Date of encounter: 06/08/22 Reasons for Services Signs and symptoms assessed: needs group home for assistance with feeding tube/tube feedings, new to putting medications through feeding tube multiple new medications, blood pressure monitoring MD Overseeing Care: José Oneil Homebound: Leaving the home is medically contraindicated at this time without the asist of a device and/or another person due th the listed conditions above and below. Reason homebound: immunosuppression / infection risk and weakness related to hospital stay Certification: Based on the above findings, I certify that this patient is confined to the home and needs intermittent group home care, physical therapy and/or speech therapy, or continues to need occupational therapy. The patient is under my care, and I have initiated the establishment of the plan of care. The patient will be followed by a physician who will periodically review the plan of care.
--- NOTE | 2022-06-08 13:53 | MHC.CM.PN ---
Confirmed w/PA patient has meds to (newly) run through [facility]. VNA will need to be in place to support this education process at home. [facility] has already accepted patient on to service. Patient to D/C to home w/services.
== END 2022-06-08 13:48 | disposition home health service (06) | DRG 177 ==
LOC: HO.ED 06-05 01:41 → HO.EDOVER 06-05 02:09 → HO.S3 06-06 02:46
PROVIDERS: Admitting Provider Internal Medicine; Emergency Provider Emergency Medicine; PCP Internal Medicine; Visit Provider Physician Assistant Medical
DX: J69.0 Pneumonitis due to inhalation of food and vomit (principal); E43 Unspecified severe protein-calorie malnutrition; C78.01 Secondary malignant neoplasm of right lung; C78.02 Secondary malignant neoplasm of left lung; Z68.1 Body mass index [BMI] 19.9 or less, adult; K62.5 Hemorrhage of anus and rectum; I47.2 Ventricular tachycardia; R64 Cachexia; C14.0 Malignant neoplasm of pharynx, unspecified; I49.3 Ventricular premature depolarization; E03.9 Hypothyroidism, unspecified; D63.0 Anemia in neoplastic disease; E86.0 Dehydration; Z20.822 Contact with and (suspected) exposure to COVID-19; Z86.718 Personal history of other venous thrombosis and embolism; Z92.3 Personal history of irradiation; Z93.1 Gastrostomy status; Z79.01 Long term (current) use of anticoagulants; Z79.890 Hormone replacement therapy; Z79.899 Other long term (current) drug therapy
CPT/HCPCS: 0241U; 36415; 70450; 71045; 71275; 80048; 80076; 81003; 82607; 82728; 82746; 83540; 83605; 83690; 83735; 83880; 84484; 85025; 85027; 85379; 85610; 85730; 87040; 93005; 93306; 94640; 94664; 96360; 96361; 99285; J0295; J0456; J2543; J3475; Q9957; Q9967

== ENCOUNTER → 2022-07-01 11:35 | Outpatient (BNVA) | payer OTHER, SELFPAY | PROVIDERS: PCP Internal Medicine; Referring Provider Internal Medicine; Visit Provider Internal Medicine | DX: I49.3 Ventricular premature depolarization (principal) | CPT/HCPCS: 93005 ==

== ENCOUNTER 2022-07-09 13:45 | Outpatient (REF) | payer OTHER, SELFPAY ==
[2022-07-09 13:51] LABS: MANUAL DIFF FLAG NO
[2022-07-09 14:05] LABS: Basophils Percent Auto 0.4 % (0-2); Eosinophils Absolute Auto 0.1 X10*3/uL (0.0-0.4); Imm Gran Abs Auto 0.05 X10*3/uL (0.00-0.03); Imm Gran Pct Auto 0.5 % (0.0-0.4); Lymphocytes Absolute Auto 0.2 X10*3/uL (1.2-4.9); Lymphocytes Percent Auto 2.2 % (20-40); Mean Corpuscular HGB Conc 30.6 g/dl (31.0-36.0); Mean Corpuscular Hemoglobin 28.1 pg (27.0-33.0); Mean Corpuscular Volume 91.9 fL (80.0-98.0); Mean Platelet Volume 9.2 fL (9.4-12.4); Monocytes Absolute Auto 0.9 X10*3/uL (0.1-1.2); Monocytes Percent Auto 8.6 % (2-11); NRBC Pct Auto 0.2 /100WBC (0.0-0.2); Neutrophils Absolute Auto 9.4 x10*3/uL (2.0-8.3); Neutrophils Percent Auto 87.3 % (45-73); Platelet Count 485 X10*3/uL (160-400); Red Cell Distribution Width 16.2 % (11.0-16.0); White Blood Count 10.7 X10*3/uL (4.8-10.8)
[2022-07-09 14:08] LABS: Hematocrit 19.3 % (42.0-52.0); Hemoglobin 5.9 g/dl (14.0-18.0)
[2022-07-09 14:51] LABS: Alanine Aminotransferase 19 U/L (0-40); Albumin Level 2.8 g/dL (3.5-5.0); Alkaline Phosphatase 102 U/L (39-117); Anion Gap 15 (12-20); Aspartate Amino Transferase 33 U/L (5-37); Bilirubin Total 0.3 mg/dL (0.0-1.0); Blood Urea Nitrogen 33 mg/dL (9-16); Calcium 8.3 mg/dL (8.4-10.2); Carbon Dioxide 30 mmol/L (22-29); Chloride 94 mmol/L (96-108); Estimated Glomerular Filt Rate > 60; Glucose Random 122 mg/dL (60-115); Potassium 4.6 mmol/L (3.3-5.1); Sodium 134 mmol/L (135-145); Total Protein 5.4 g/dL (6.5-8.0)
== END 2022-07-09 13:46 | disposition home or self-care (01) ==
LOC: HO.HVNA 13:45
PROVIDERS: Visit Provider Internal Medicine
DX: E43 Unspecified severe protein-calorie malnutrition (principal)
CPT/HCPCS: 36415; 80053; 85025

== ENCOUNTER 2022-07-10 06:52 | Outpatient (REF) | payer OTHER, SELFPAY | END 2022-07-10 06:53 | disposition home or self-care (01) | LOC: HO.MDS 06:52 | PROVIDERS: PCP Internal Medicine; Visit Provider Internal Medicine | DX: D64.9 Anemia, unspecified (principal); C14.0 Malignant neoplasm of pharynx, unspecified; C78.00 Secondary malignant neoplasm of unspecified lung | CPT/HCPCS: 36430; 86850; 86900; 86901; 86923; P9016 ==